=== PATIENT | male | born 1955 | race Caucasian/White ===

== ENCOUNTER 2016-08-21 03:15 | Inpatient (IN) | payer MEDICARE, MEDICAID ==
[~2016-08-21] VITALS: Ht 170.2 cm; Wt 115.4 kg
[~2016-08-21 03:15] MED LIST: ALLO100T; COLC0.6T; ESOM40CA39; FLU01T PO; MET25T PO; NIF10C PO; NOR5T PO; PHE100C PO
[2016-08-21 05:58] LABS: Basophils # (auto) 0.2 uL; Basophils % (auto) 2.7 % (0.0-2.0); Eosinophils # (auto) 0.3 uL; Eosinophils % (auto) 4.6 % (0.0-7.0); Hematocrit 29.7 % (41.0-53.0); Lymphocytes # (auto) 2.2 uL; Lymphocytes % (auto) 32.3 % (10.0-50.0); Mean Corpuscular Hemoglobin 31.5 pg (28.0-32.0); Mean Corpuscular Hgb Conc. 33.7 g/dL (32.0-36.0); Mean Corpuscular Volume 93.3 fL (80.0-100.0); Mean Platelet Volume 8.8 fL (7.4-10.4); Monocytes # (auto) 0.5 uL; Monocytes % (auto) 7.9 % (0.0-12.0); Neutrophils # (auto) 3.6 uL; Neutrophils % (auto) 52.5 % (37.0-80.0); Platelet Count (auto) 215 10^3/uL (140-450); Red Cell Distribution Width 17.8 % (11.6-16.0); White Blood Cell 6.8 10^3/uL (4.4-10.8)
[2016-08-21 06:11] LABS: INR 1.06 (0.9-1.15); Partial Thromboplastin Time 28.9 sec (22.64-33.71); Prothrombin Time 11.6 sec (9.37-12.3)
[2016-08-21 06:20] LABS: Anion Gap 17 (5-15); Aspartate Aminotransferase 16 U/L (15-37); BUN/Creatinine Ratio 9.2; Calcium 8.5 mg/dL (8.5-10.1); Carbon Dioxide 17 mmol/L (21-32); Chloride 108 mmol/L (98-107); GFR African American 6 mL/min; GFR Non-African American 5 mL/min; Glucose 90 mg/dL (74-106); Potassium 4.4 mmol/L (3.5-5.1); Sodium 142 mmol/L (136-145)
[2016-08-21 06:28] LABS: Alkaline Phosphatase 91 U/L (45-117); B-Type Natriuretic Peptide 24.23 pg/mL (0-100); Bilirubin, Total 0.2 mg/dL (0.2-1.0); Total Protein 7.5 g/dL (6.4-8.2)
[2016-08-21 06:34] LABS: Temperature: 22.7 C (20.0-25.0)
[2016-08-21 06:37] LABS: Blood Urea Nitrogen 110 mg/dL (7-18)
[2016-08-21] MEDS ORDERED: ONDANSETRON HCL 4 MG/2 ML VIAL IV ONE (06:45)
[2016-08-21] MEDS ORDERED: HYDROmorphone HCL 2 MG/ML VL IV ONE (06:45)
[2016-08-21] MEDS ORDERED: LORazepam 2MG/ML-1ML VIAL IV PRN (09:00)
[2016-08-21] MEDS ORDERED: LORazepam 0.5 MG TAB PO PRN (09:15)
[2016-08-21] MEDS ORDERED: MORPHINE SULF INJ 2 MG/ML SYRINGE 1ML IV PRN ×2 (09:15)
[2016-08-21] MEDS ORDERED: NITROGLYCERIN 0.4 MG SL TAB SL PRN ×2 (09:15)
[2016-08-21] MEDS ORDERED: ACETAMINOPHEN 325 MG TAB PO PRN (09:15)
[2016-08-21] MEDS ORDERED: ZOLPIDEM TARTRATE 5 MG TAB PO PRN (09:15)
[2016-08-21] MEDS ORDERED: ALUM & MAG HYDROX-SIMETH LIQ(MAALOX) 30 ML PO PRN (09:15)
[2016-08-21] MEDS: CLOPIDOGREL BISULFATE 75 MG TAB PO SCH (09:52)
[2016-08-21] MEDS: DOCUSATE SOD 100 MG CAP PO SCH (09:53)
[2016-08-21] MEDS: METOPROLOL TARTRATE 25 MG TAB PO SCH ×2 (09:53→22:28)
[2016-08-21] MEDS: PANTOPRAZOLE 40 MG TAB PO SCH (09:54)
[2016-08-21] MEDS: hydrALAZINE HCL 25 MG TAB PO SCH ×2 (09:54→22:26)
[2016-08-21] MEDS: ENALAPRIL MALEATE 2.5 MG TAB PO SCH ×2 (09:54→22:29)
[2016-08-21] MEDS: ASPirin 81 mg TAB PO SCH (09:58)
[2016-08-21] MEDS: BOOST PLUS 8 ounce PO SCH ×2 (12:00→18:00)
[2016-08-21 12:45] VITALS: BP 113/62
[2016-08-21] MEDS: SODIUM CHLOR 0.9% PF (SALINE LOCK) 10ML VIAL IV SCH ×2 (14:00→22:26)
[2016-08-21] MEDS: PHENYTOIN SODIUM 100 MG CAP PO SCH ×2 (14:32→22:27)
[2016-08-21 17:09] VITALS: BP 101/58
[2016-08-21 20:00] VITALS: BP 106/53
[2016-08-21] MEDS: SENNA 8.6 MG TAB PO SCH ×2 (22:00→22:28)
[2016-08-21] MEDS: ATORVASTATIN 20 MG TAB PO SCH (22:27)
[2016-08-21] MEDS: BACLOFEN 10 MG TAB PO SCH (22:27)
[2016-08-22] MEDS: ONDANSETRON HCL 4 MG/2 ML VIAL IV PRN ×2 (02:23→10:39)
[2016-08-22] MEDS: HYDROcodone-ACET 7.5/325MG TAB PO PRN ×2 (02:25→10:41)
[2016-08-22 05:14] VITALS: BP 100/58
[2016-08-22] MEDS: SODIUM CHLOR 0.9% PF (SALINE LOCK) 10ML VIAL IV SCH ×3 (05:36→21:43)
[2016-08-22] MEDS: PHENYTOIN SODIUM 100 MG CAP PO SCH ×3 (05:36→21:52)
[2016-08-22 06:31] LABS: Basophils # (auto) 0 uL; Basophils % (auto) 0.6 % (0.0-2.0); Eosinophils # (auto) 0.4 uL; Hematocrit 29.3 % (41.0-53.0); Hemoglobin 9.7 g/dL (13.5-17.5); Lymphocytes # (auto) 2.3 uL; Lymphocytes % (auto) 31.2 % (10.0-50.0); Mean Corpuscular Hemoglobin 31.5 pg (28.0-32.0); Mean Corpuscular Hgb Conc. 33.2 g/dL (32.0-36.0); Mean Corpuscular Volume 94.8 fL (80.0-100.0); Mean Platelet Volume 8.5 fL (7.4-10.4); Monocytes # (auto) 0.5 uL; Monocytes % (auto) 7.1 % (0.0-12.0); Neutrophils # (auto) 4.1 uL; Neutrophils % (auto) 56.1 % (37.0-80.0); Platelet Count (auto) 219 10^3/uL (140-450); Red Cell Distribution Width 17.6 % (11.6-16.0); White Blood Cell 7.4 10^3/uL (4.4-10.8)
[2016-08-22 07:00] LABS: Albumin 2.9 g/dL (3.4-5.0); Bilirubin, Total 0.2 mg/dL (0.2-1.0); Magnesium 2.8 mg/dL (1.6-2.6); Potassium 4.7 mmol/L (3.5-5.1); Total Protein 6.9 g/dL (6.4-8.2)
[2016-08-22] MEDS ORDERED: EPOETIN ALFA 3,000 UNIT/1 ML VIAL IV ONE (08:00)
[2016-08-22] MEDS ORDERED: EPOETIN ALFA 2,000 UNIT/1 ML VIAL IV ONE (08:00)
[2016-08-22] MEDS ORDERED: SODIUM CHL 0.9% 1000 ML BAG XX ONE (08:00)
[2016-08-22] MEDS: BOOST PLUS 8 ounce PO SCH ×3 (08:00→17:20)
[2016-08-22 09:43] VITALS: BP 108/47
[2016-08-22] MEDS: hydrALAZINE HCL 25 MG TAB PO SCH ×2 (10:00→21:43)
[2016-08-22] MEDS: ENALAPRIL MALEATE 2.5 MG TAB PO SCH ×2 (10:00→21:44)
[2016-08-22] MEDS: METOPROLOL TARTRATE 25 MG TAB PO SCH ×2 (10:00→21:43)
[2016-08-22] MEDS: DOCUSATE SOD 100 MG CAP PO SCH (10:00)
[2016-08-22] MEDS: ASPirin 81 mg TAB PO SCH (10:40)
[2016-08-22] MEDS: CLOPIDOGREL BISULFATE 75 MG TAB PO SCH (10:40)
[2016-08-22] MEDS: PANTOPRAZOLE 40 MG TAB PO SCH (10:40)
[2016-08-22 14:34] VITALS: BP 107/53
[2016-08-22] MEDS ORDERED: EPOETIN ALFA 3,000 UNIT/1 ML VIAL SC ONE (15:30)
[2016-08-22] MEDS ORDERED: EPOETIN ALFA 2,000 UNIT/1 ML VIAL SC ONE (15:30)
[2016-08-22 17:59] VITALS: BP 78/46
[2016-08-22 18:00] VITALS: BP 102/60
[2016-08-22] MEDS: BACLOFEN 10 MG TAB PO SCH (21:52)
[2016-08-22] MEDS: ATORVASTATIN 20 MG TAB PO SCH (21:53)
[2016-08-22] MEDS: SENNA 8.6 MG TAB PO SCH (21:53)
[2016-08-22 22:00] VITALS: BP 90/56
[2016-08-23 05:00] VITALS: BP 98/51
[2016-08-23] MEDS: SODIUM CHLOR 0.9% PF (SALINE LOCK) 10ML VIAL IV SCH (05:44)
[2016-08-23] MEDS: PHENYTOIN SODIUM 100 MG CAP PO SCH (05:44)
[2016-08-23 06:00] LABS: Basophils # (auto) 0 uL; Basophils % (auto) 0.4 % (0.0-2.0); Eosinophils # (auto) 0.4 uL; Eosinophils % (auto) 5.7 % (0.0-7.0); Hematocrit 29.1 % (41.0-53.0); Hemoglobin 9.8 g/dL (13.5-17.5); Lymphocytes # (auto) 1.6 uL; Lymphocytes % (auto) 22.2 % (10.0-50.0); Mean Corpuscular Hemoglobin 31.3 pg (28.0-32.0); Mean Corpuscular Hgb Conc. 33.5 g/dL (32.0-36.0); Mean Corpuscular Volume 93.2 fL (80.0-100.0); Mean Platelet Volume 8.8 fL (7.4-10.4); Monocytes # (auto) 0.5 uL; Monocytes % (auto) 6.5 % (0.0-12.0); Neutrophils # (auto) 4.6 uL; Neutrophils % (auto) 65.2 % (37.0-80.0); Platelet Count (auto) 198 10^3/uL (140-450); Red Cell Distribution Width 17.5 % (11.6-16.0)
[2016-08-23 06:32] LABS: Anion Gap 14 (5-15); Blood Urea Nitrogen 71 mg/dL (7-18); Calcium 7.8 mg/dL (8.5-10.1); Carbon Dioxide 24 mmol/L (21-32); Chloride 101 mmol/L (98-107); Glucose 87 mg/dL (74-106); Potassium 4.3 mmol/L (3.5-5.1); Sodium 139 mmol/L (136-145)
[2016-08-23 06:35] LABS: Aspartate Aminotransferase 11 U/L (15-37); BUN/Creatinine Ratio 7.8; GFR African American 8 mL/min; GFR Non-African American 6 mL/min
[2016-08-23 06:36] LABS: Alkaline Phosphatase 88 U/L (45-117); Bilirubin, Total < 0.1 mg/dL (0.2-1.0); Total Protein 6.6 g/dL (6.4-8.2)
[2016-08-23 08:00] LABS: Urine RBC None Seen /hpf (0 - 3)
[2016-08-23 08:15] LABS: Urine Bilirubin Negative (Negative); Urine Blood Negative /uL (Negative); Urine Color Yellow (Yellow); Urine Glucose TRACE mg/dL (Normal); Urine Ketone Negative (Negative); Urine Mucus FEW (None Seen); Urine Nitrite Negative (Negative); Urine Squamous Epithelial Cell FEW /hpf (<5); Urine Urobilinogen Normal (Negative); Urine pH 5.5 (5.0-8.0)
[2016-08-23 08:30] VITALS: BP 100/60
[2016-08-23 08:49] VITALS: BP 100/50
[2016-08-23] MEDS: CLOPIDOGREL BISULFATE 75 MG TAB PO SCH (12:03)
[2016-08-23] MEDS: hydrALAZINE HCL 25 MG TAB PO SCH (12:03)
[2016-08-23] MEDS: PANTOPRAZOLE 40 MG TAB PO SCH (12:04)
[2016-08-23] MEDS: DOCUSATE SOD 100 MG CAP PO SCH (12:04)
[2016-08-23] MEDS: ASPirin 81 mg TAB PO SCH (12:04)
[2016-08-23] MEDS: METOPROLOL TARTRATE 25 MG TAB PO SCH (12:04)
[2016-08-23] MEDS: ENALAPRIL MALEATE 2.5 MG TAB PO SCH (12:05)
[2016-08-23] MEDS: BOOST PLUS 8 ounce PO SCH (12:16)
[2016-08-23 13:24] VITALS: BP 93/57
[2016-08-23 14:19] VITALS: BP 100/60
[2016-08-23 16:59] VITALS: BP 94/56
== END 2016-08-23 17:30 | disposition home or self-care (01) | DRG 302 ==
LOC: ER 03:15 → EDBD 03:15 → TELE 03:16 → TELE-WESTW 11:00
PROVIDERS: ADMIT Internal Medicine; ATTEND Family Medicine
PROC: 5A1D00Z (ICD-10-PCS; principal; 2016-08-22)
DX: I25.119 Atherosclerotic heart disease of native coronary artery with unspecified angina pectoris (principal); N18.6 End stage renal disease; I12.0 Hypertensive chronic kidney disease with stage 5 chronic kidney disease or end stage renal disease; E44.0 Moderate protein-calorie malnutrition; D63.1 Anemia in chronic kidney disease; E66.01 Morbid (severe) obesity due to excess calories; F32.9 Major depressive disorder, single episode, unspecified; G40.909 Epilepsy, unspecified, not intractable, without status epilepticus; K21.9 Gastro-esophageal reflux disease without esophagitis; G47.00 Insomnia, unspecified; F41.9 Anxiety disorder, unspecified; M10.9 Gout, unspecified; Z82.3 Family history of stroke; Z82.49 Family history of ischemic heart disease and other diseases of the circulatory system; I25.2 Old myocardial infarction; Z86.73 Personal history of transient ischemic attack (TIA), and cerebral infarction without residual deficits; Z99.2 Dependence on renal dialysis; Z88.8 Allergy status to other drugs, medicaments and biological substances; Z79.899 Other long term (current) drug therapy; Z90.49 Acquired absence of other specified parts of digestive tract; Z80.8 Family history of malignant neoplasm of other organs or systems; Z68.39 Body mass index [BMI] 39.0-39.9, adult
CPT/HCPCS: 36415; 71010; 80053; 80061; 80185; 81001; 83735; 83880; 84443; 84484; 85025; 85610; 85730; 87081; 90935; 93005; 93306; 94761; 96374; 96375; J2405; Q4081

== ENCOUNTER 2016-10-02 03:13 | Inpatient (IN) | payer MEDICARE, MEDICAID ==
[~2016-10-02] VITALS: Ht 170.2 cm; Wt 101.2 kg
[~2016-10-02 03:13] MED LIST changes: +HYDR-4663 PO; -NOR5T PO
[2016-10-02 04:28] LABS: Basophils # (auto) 0.1 uL; Basophils % (auto) 1.1 % (0.0-2.0); CONDITION Y; Eosinophils # (auto) 0.3 uL; Hematocrit 37.3 % (41.0-53.0); Hemoglobin 12.6 g/dL (13.5-17.5); Lymphocytes # (auto) 2.4 uL; Lymphocytes % (auto) 22.6 % (10.0-50.0); Mean Corpuscular Hemoglobin 32.4 pg (28.0-32.0); Mean Corpuscular Hgb Conc. 33.8 g/dL (32.0-36.0); Mean Platelet Volume 8.8 fL (7.4-10.4); Monocytes # (auto) 1.1 uL; Monocytes % (auto) 9.9 % (0.0-12.0); Neutrophils # (auto) 6.8 uL; Neutrophils % (auto) 63.4 % (37.0-80.0); Platelet Count (auto) 332 10^3/uL (140-450); Red Cell Distribution Width 15.9 % (11.6-16.0); White Blood Cell 10.8 10^3/uL (4.4-10.8)
[2016-10-02 04:42] LABS: Albumin 4.2 g/dL (3.4-5.0); Amylase 69 U/L (25-115); Anion Gap 26 (5-15); Aspartate Aminotransferase 8 U/L (15-37); Blood Urea Nitrogen 73 mg/dL (7-18); Calcium 9.7 mg/dL (8.5-10.1); Carbon Dioxide 17 mmol/L (21-32); Chloride 93 mmol/L (98-107); Glucose 101 mg/dL (74-106); Magnesium 3.1 mg/dL (1.6-2.6); Potassium 5.4 mmol/L (3.5-5.1); Sodium 136 mmol/L (136-145)
[2016-10-02 04:49] LABS: Alkaline Phosphatase 138 U/L (45-117); BUN/Creatinine Ratio 3.3; Bilirubin, Total 0.4 mg/dL (0.2-1.0); GFR African American 3 mL/min; GFR Non-African American 2 mL/min; Total Protein 9.7 g/dL (6.4-8.2)
[2016-10-02 05:07] LABS: B-Type Natriuretic Peptide 16.65 pg/mL (0-100)
[2016-10-02 06:57] LABS: Temperature: 23.1 C (20.0-25.0)
[2016-10-02] MEDS ORDERED: SODIUM CHLORIDE 0.9% 500 ML IV ONE (07:30)
[2016-10-02] MEDS ORDERED: LORazepam 2MG/ML-1ML VIAL IV PRN (11:30)
[2016-10-02] MEDS ORDERED: cloNIDine HCL 0.1 MG TAB PO PRN (11:30)
[2016-10-02] MEDS ORDERED: NITROGLYCERIN 0.4 MG SL TAB SL PRN (11:45)
[2016-10-02] MEDS ORDERED: ONDANSETRON HCL 4 MG/2 ML VIAL IV PRN (11:45)
[2016-10-02] MEDS ORDERED: HYDROmorphone HCL 2 MG/ML VL IV PRN (11:45)
[2016-10-02] MEDS ORDERED: TEMAZEPAM 15 MG CAP PO PRN (11:45)
[2016-10-02] MEDS ORDERED: ACETAMINOPHEN 325 MG TAB PO PRN (11:45)
[2016-10-02] MEDS ORDERED: DOCUSATE SOD 100 MG CAP PO PRN (11:45)
[2016-10-02] MEDS: MULTIPLE VITAMIN TAB PO SCH (12:00)
[2016-10-02] MEDS: PHENYTOIN SODIUM 100 MG CAP PO SCH ×2 (12:00→22:27)
[2016-10-02] MEDS: NIFEdipine ER 30 MG TAB PO SCH (12:00)
[2016-10-02] MEDS: FAMOTIDINE 20 MG TAB PO SCH (12:00)
[2016-10-02] MEDS: SODIUM CHLOR 0.9% PF (SALINE LOCK) 10ML VIAL IV SCH ×2 (13:06→21:29)
[2016-10-02] MEDS ORDERED: HALOPERIDOL LACTATE 5 MG/ML INJ VIAL IM PRN (21:15)
[2016-10-02 21:33] LABS: Temperature: 23.9 C (20.0-25.0)
[2016-10-02] MEDS ORDERED: FAMOTIDINE 20 MG TAB PO SCH (22:00)
[2016-10-02] MEDS: ATORVASTATIN 20 MG TAB PO SCH (22:00)
[2016-10-02] MEDS: HYDROcodone-ACET 5/325MG TAB PO PRN (22:27)
[2016-10-02 23:41] VITALS: BP 108/56
[2016-10-03] MEDS: SODIUM CHLOR 0.9% PF (SALINE LOCK) 10ML VIAL IV SCH ×3 (05:29→22:00)
[2016-10-03 05:37] VITALS: BP 120/61
[2016-10-03] MEDS: MULTIPLE VITAMIN TAB PO SCH (10:00)
[2016-10-03] MEDS: FAMOTIDINE 20 MG TAB PO SCH (10:00)
[2016-10-03] MEDS: NIFEdipine ER 30 MG TAB PO SCH (10:00)
[2016-10-03] MEDS: PHENYTOIN SODIUM 100 MG CAP PO SCH ×2 (10:03→22:18)
[2016-10-03] MEDS: HYDROcodone-ACET 5/325MG TAB PO PRN (10:04)
[2016-10-03] MEDS ORDERED: CLOPIDOGREL BISULFATE 75 MG TAB PO ONE (12:00)
[2016-10-03] MEDS: ATORVASTATIN 20 MG TAB PO SCH (22:18)
[2016-10-04] VITALS (24 sets, daily range): BP systolic 99–148; BP diastolic 42–90
[2016-10-04] MEDS: SODIUM CHLOR 0.9% PF (SALINE LOCK) 10ML VIAL IV SCH ×3 (05:20→22:00)
[2016-10-04] MEDS ORDERED: HEPARIN 1,000 UNITS/ml 1ML VIAL IV ONE (09:15)
[2016-10-04] MEDS: PHENYTOIN SODIUM 100 MG CAP PO SCH ×3 (09:27→22:18)
[2016-10-04] MEDS: MULTIPLE VITAMIN TAB PO SCH (09:28)
[2016-10-04] MEDS: CLOPIDOGREL BISULFATE 75 MG TAB PO SCH (09:28)
[2016-10-04] MEDS: FAMOTIDINE 20 MG TAB PO SCH (09:28)
[2016-10-04] MEDS: NIFEdipine ER 30 MG TAB PO SCH (09:28)
[2016-10-04] MEDS: HYDROcodone-ACET 5/325MG TAB PO PRN (10:27)
[2016-10-04 11:02] LABS: Basophils # (auto) 0.1 uL; Basophils % (auto) 1.1 % (0.0-2.0); CONDITION Y; Eosinophils # (auto) 0.2 uL; Hematocrit 35.2 % (41.0-53.0); Hemoglobin 11.8 g/dL (13.5-17.5); Lymphocytes # (auto) 1.5 uL; Lymphocytes % (auto) 16.1 % (10.0-50.0); Mean Corpuscular Hemoglobin 32.7 pg (28.0-32.0); Mean Corpuscular Hgb Conc. 33.6 g/dL (32.0-36.0); Mean Corpuscular Volume 97.4 fL (80.0-100.0); Mean Platelet Volume 8.7 fL (7.4-10.4); Monocytes # (auto) 0.8 uL; Monocytes % (auto) 8.1 % (0.0-12.0); Neutrophils # (auto) 6.9 uL; Neutrophils % (auto) 72.7 % (37.0-80.0); Platelet Count (auto) 247 10^3/uL (140-450); Red Cell Distribution Width 15.9 % (11.6-16.0); White Blood Cell 9.4 10^3/uL (4.4-10.8)
[2016-10-04] MEDS ORDERED: SODIUM BICARBONATE 8.4 % INJ 50ML VIAL IV ONE (11:15)
[2016-10-04] MEDS ORDERED: DEXTROSE (50%) 50ML SYRG IV ONE (11:15)
[2016-10-04] MEDS ORDERED: CALCIUM GLUC 4.65 MEQ/10ML 4.65 MEQ in SODIUM CHL 0.9% 50 ML IV ONE (11:15)
[2016-10-04] MEDS ORDERED: ALBUTEROL SULF 2.5 MG/0.5ML(0.5%) NEB SOLN NEB ONE (11:15)
[2016-10-04] MEDS ORDERED: InsuLIN REG 1unit/0.01ml Soln (100units/ml) SC ONE (11:15)
[2016-10-04] MEDS ORDERED: SODIUM BICARBONATE 8.4% INJ 50ML SYRINGE ONE (11:20)
[2016-10-04 11:46] LABS: Albumin 3.9 g/dL (3.4-5.0); BUN/Creatinine Ratio 4.1; Bilirubin, Total 0.4 mg/dL (0.2-1.0); Calcium 9.6 mg/dL (8.5-10.1); Total Protein 8.6 g/dL (6.4-8.2)
[2016-10-04 12:40] LABS: Potassium 7.8 mmol/L (3.5-5.1)
[2016-10-04] MEDS: ALBUMIN 25% 100 ML IV SCH ×2 (14:00→15:00)
[2016-10-04] MEDS ORDERED: ONDANSETRON HCL 4 MG/2 ML VIAL IM ONE (21:45)
[2016-10-04 21:58] LABS: BUN/Creatinine Ratio 3.1; Calcium 10.3 mg/dL (8.5-10.1); Magnesium 3.2 mg/dL (1.6-2.6)
[2016-10-04] MEDS: ATORVASTATIN 20 MG TAB PO SCH (22:10)
[2016-10-05] VITALS (32 sets, daily range): BP systolic 98–137; BP diastolic 44–103
[2016-10-05] MEDS: SODIUM CHLOR 0.9% PF (SALINE LOCK) 10ML VIAL IV SCH ×3 (06:00→22:00)
[2016-10-05 08:28] LABS: Basophils # (auto) 0.1 uL; Basophils % (auto) 1.1 % (0.0-2.0); CONDITION Y; Eosinophils # (auto) 0.5 uL; Eosinophils % (auto) 5.8 % (0.0-7.0); Hematocrit 37.6 % (41.0-53.0); Hemoglobin 12.4 g/dL (13.5-17.5); Lymphocytes # (auto) 1.9 uL; Lymphocytes % (auto) 23.5 % (10.0-50.0); Mean Corpuscular Hgb Conc. 33.1 g/dL (32.0-36.0); Mean Corpuscular Volume 96.7 fL (80.0-100.0); Monocytes # (auto) 0.6 uL; Monocytes % (auto) 7.6 % (0.0-12.0); Platelet Count (auto) 258 10^3/uL (140-450); Red Cell Distribution Width 16.6 % (11.6-16.0)
[2016-10-05 08:50] LABS: Albumin 4.1 g/dL (3.4-5.0); Calcium 10.3 mg/dL (8.5-10.1); Potassium 4.8 mmol/L (3.5-5.1)
[2016-10-05 09:00] LABS: BUN/Creatinine Ratio 3.5; Bilirubin, Total 0.4 mg/dL (0.2-1.0); Total Protein 9.4 g/dL (6.4-8.2)
[2016-10-05] MEDS: NIFEdipine ER 30 MG TAB PO SCH (10:00)
[2016-10-05] MEDS: MULTIPLE VITAMIN TAB PO SCH ×2 (10:00→10:41)
[2016-10-05] MEDS: FAMOTIDINE 20 MG TAB PO SCH ×2 (10:00→10:41)
[2016-10-05] MEDS: CLOPIDOGREL BISULFATE 75 MG TAB PO SCH ×2 (10:00→10:36)
[2016-10-05] MEDS: PHENYTOIN SODIUM 100 MG CAP PO SCH (10:37)
[2016-10-05] MEDS ORDERED: SODIUM CHL 0.9% 1000 ML BAG XX ONE (13:00)
[2016-10-05] MEDS ORDERED: PHENYTOIN SODIUM 100 MG CAP PO ONE (22:00)
[2016-10-05] MEDS: ATORVASTATIN 20 MG TAB PO SCH (22:03)
[2016-10-06 05:00] VITALS: BP 108/63
[2016-10-06 05:40] LABS: Basophils # (auto) 0.1 uL; Basophils % (auto) 0.6 % (0.0-2.0); CONDITION Y; DEFINITIVE SEE PRINTOUT; Eosinophils # (auto) 0.9 uL; Eosinophils % (auto) 10.9 % (0.0-7.0); Hematocrit 38.8 % (41.0-53.0); Hemoglobin 12.9 g/dL (13.5-17.5); Lymphocytes # (auto) 2.8 uL; Mean Corpuscular Hemoglobin 32.1 pg (28.0-32.0); Mean Corpuscular Hgb Conc. 33.3 g/dL (32.0-36.0); Mean Corpuscular Volume 96.2 fL (80.0-100.0); Mean Platelet Volume 9.3 fL (7.4-10.4); Monocytes # (auto) 0.5 uL; Monocytes % (auto) 6.5 % (0.0-12.0); Platelet Count (auto) 238 10^3/uL (140-450); Red Cell Distribution Width 15.8 % (11.6-16.0); White Blood Cell 8.3 10^3/uL (4.4-10.8)
[2016-10-06 05:50] LABS: INR 1.21 (0.9-1.15)
[2016-10-06 05:52] LABS: Prothrombin Time 13.2 sec (9.37-12.3)
[2016-10-06 05:55] LABS: Calcium 10.5 mg/dL (8.5-10.1); Magnesium 3.2 mg/dL (1.6-2.6); Potassium 4.6 mmol/L (3.5-5.1)
[2016-10-06 06:05] LABS: BUN/Creatinine Ratio 3.8; Bilirubin, Total 0.4 mg/dL (0.2-1.0); Total Protein 9.2 g/dL (6.4-8.2)
[2016-10-06 08:00] VITALS: BP 99/64
[2016-10-06 09:00] VITALS: BP 125/65
[2016-10-06] MEDS: NIFEdipine ER 30 MG TAB PO SCH (10:00)
[2016-10-06] MEDS: MULTIPLE VITAMIN TAB PO SCH (10:00)
[2016-10-06] MEDS: FAMOTIDINE 20 MG TAB PO SCH (10:00)
[2016-10-06] MEDS: CLOPIDOGREL BISULFATE 75 MG TAB PO SCH (10:40)
[2016-10-06] MEDS: PHENYTOIN SODIUM 100 MG CAP PO SCH ×2 (10:41→22:52)
[2016-10-06] MEDS: SODIUM CHLOR 0.9% PF (SALINE LOCK) 10ML VIAL IV SCH ×3 (10:46→22:00)
[2016-10-06 13:00] VITALS: BP 109/64
[2016-10-06 17:10] VITALS: BP 112/77
[2016-10-06 22:00] VITALS: BP 95/62
[2016-10-06] MEDS: ATORVASTATIN 20 MG TAB PO SCH (22:00)
[2016-10-07 05:00] VITALS: BP 95/56
[2016-10-07 08:00] VITALS: BP 127/70
[2016-10-07 09:00] VITALS: BP 127/70
[2016-10-07] MEDS: FAMOTIDINE 20 MG TAB PO SCH (10:00)
[2016-10-07] MEDS: CLOPIDOGREL BISULFATE 75 MG TAB PO SCH (10:00)
[2016-10-07] MEDS: MULTIPLE VITAMIN TAB PO SCH (10:00)
[2016-10-07] MEDS: NIFEdipine ER 30 MG TAB PO SCH (10:00)
[2016-10-07] MEDS: PHENYTOIN SODIUM 100 MG CAP PO SCH (10:00)
[2016-10-07 13:00] VITALS: BP 125/80
== END 2016-10-07 11:00 | disposition hospice, inpatient (51) | DRG 682 ==
LOC: ER 03:13 → EDBD 03:13 → TELE 03:14 → TELE-E-ADS 15:30 → TELE-CENTR 18:49 → ICU WEST 10-04 11:05 → TELE-WESTW 10-05 17:01
PROVIDERS: ADMIT Internal Medicine; ATTEND Internal Medicine
PROC: 5A1D60Z (ICD-10-PCS; principal; 2016-10-04)
DX: I12.0 Hypertensive chronic kidney disease with stage 5 chronic kidney disease or end stage renal disease (principal); G93.41 Metabolic encephalopathy; N18.6 End stage renal disease; J98.11 Atelectasis; E87.2 Acidosis; E87.5 Hyperkalemia; G40.909 Epilepsy, unspecified, not intractable, without status epilepticus; M10.9 Gout, unspecified; E11.22 Type 2 diabetes mellitus with diabetic chronic kidney disease; E86.0 Dehydration; G30.9 Alzheimer's disease, unspecified; F02.80 Dementia in other diseases classified elsewhere, unspecified severity, without behavioral disturbance, psychotic disturbance, mood disturbance, and anxiety; F29 Unspecified psychosis not due to a substance or known physiological condition; H54.0 Blindness, both eyes; I25.10 Atherosclerotic heart disease of native coronary artery without angina pectoris; K21.9 Gastro-esophageal reflux disease without esophagitis; E87.8 Other disorders of electrolyte and fluid balance, not elsewhere classified; R53.1 Weakness; Z51.5 Encounter for palliative care; W18.39XA Other fall on same level, initial encounter; Y93.89 Activity, other specified; Y92.89 Other specified places as the place of occurrence of the external cause; Y99.8 Other external cause status; Z91.15 Patient's noncompliance with renal dialysis; I25.2 Old myocardial infarction; Z79.02 Long term (current) use of antithrombotics/antiplatelets; Z79.899 Other long term (current) drug therapy; Z82.3 Family history of stroke; Z82.49 Family history of ischemic heart disease and other diseases of the circulatory system; Z83.3 Family history of diabetes mellitus; Z86.73 Personal history of transient ischemic attack (TIA), and cerebral infarction without residual deficits; Z87.891 Personal history of nicotine dependence; Z91.19 Patient's noncompliance with other medical treatment and regimen; Z99.81 Dependence on supplemental oxygen; Z88.8 Allergy status to other drugs, medicaments and biological substances; Z90.49 Acquired absence of other specified parts of digestive tract; Z80.9 Family history of malignant neoplasm, unspecified
CPT/HCPCS: 36415; 70450; 71010; 80048; 80053; 82150; 82607; 82746; 82962; 83605; 83690; 83735; 83880; 84100; 84439; 84443; 84484; 85025; 85610; 87081; 90935; 93005; 96360; 96361; 97110; 97116; 97163; 97530; J1642; J2405

== ENCOUNTER 2017-01-19 23:36 | Emergency (ER) | payer MEDICARE, MEDICAID ==
[~2017-01-19] VITALS: Ht 170.2 cm; Wt 110.2 kg
[~2017-01-19 23:36] MED LIST changes: -HYDR-4663 PO; +HYDR-4683 PO
[2017-01-19 23:49] VITALS: BP 121/69
== END 2017-01-20 04:41 | disposition left against medical advice (07) ==
LOC: EDBD 23:36 → EDUNIT# 23:36 → ER 23:36
DX: R07.89 Other chest pain (principal); I12.0 Hypertensive chronic kidney disease with stage 5 chronic kidney disease or end stage renal disease; N18.6 End stage renal disease; M10.9 Gout, unspecified; K21.9 Gastro-esophageal reflux disease without esophagitis; Z86.73 Personal history of transient ischemic attack (TIA), and cerebral infarction without residual deficits; I25.2 Old myocardial infarction; Z90.49 Acquired absence of other specified parts of digestive tract; Z79.899 Other long term (current) drug therapy; Z88.8 Allergy status to other drugs, medicaments and biological substances; Z53.29 Procedure and treatment not carried out because of patient's decision for other reasons
CPT/HCPCS: 71010; 93005

== ENCOUNTER 2017-04-03 22:36 | Inpatient (IN) | payer MEDICARE, MEDICAID ==
[~2017-04-03] VITALS: Ht 170.2 cm; Wt 109.8 kg
[~2017-04-03 22:36] MED LIST changes: +ASPI81CH43 PO; +CLOP75TA28 PO
[2017-04-03 23:29] LABS: Basophils # (auto) 0 uL; Eosinophils # (auto) 0.1 uL; Hemoglobin 8.1 g/dL (13.5-17.5); Lymphocytes # (auto) 1.3 uL; Mean Corpuscular Hgb Conc. 33.1 g/dL (32.0-36.0); Monocytes # (auto) 0.9 uL; Neutrophils # (auto) 4.8 uL; Nucleated Red Blood Cells % 0.1 %
[2017-04-03 23:32] LABS: Basophils % (auto) 0.5 % (0.0-2.0); Eosinophils % (auto) 1.3 % (0.0-7.0); Hematocrit 24.4 % (41.0-53.0); Lymphocytes % (auto) 18.1 % (10.0-50.0); Mean Corpuscular Volume 87.7 fL (80.0-100.0); Monocytes % (auto) 12.4 % (0.0-12.0); Neutrophils % (auto) 67.7 % (37.0-80.0); Platelet Count (auto) 158 10^3/uL (140-450); Red Blood Cells 2.78 10^6/uL (4.5-5.90); Red Cell Distribution Width 17.8 % (11.8-14.3)
[2017-04-03 23:56] LABS: INR 1.28 (0.9-1.15); Partial Thromboplastin Time 34.5 sec (22.64-33.71)
[2017-04-04 00:09] LABS: Chloride 107 mmol/L (98-107); Potassium 3.5 mmol/L (3.5-5.1); Sodium 137 mmol/L (136-145)
[2017-04-04 00:10] LABS: Alanine Aminotransferase 8 U/L (16-61); Alkaline Phosphatase 92 U/L (45-117); Anion Gap 11 (5-15); Aspartate Aminotransferase 6 U/L (15-37); BUN/Creatinine Ratio 7.9; Bilirubin, Total 0.2 mg/dL (0.2-1.0); Blood Urea Nitrogen 50 mg/dL (7-18); Calcium 7.4 mg/dL (8.5-10.1); Carbon Dioxide 19 mmol/L (21-32); GFR African American 12 mL/min; GFR Non-African American 10 mL/min; Glucose 89 mg/dL (74-106); Total Protein 7.2 g/dL (6.4-8.2)
[2017-04-04 00:11] LABS: Albumin 2.4 g/dL (3.4-5.0)
[2017-04-04] MEDS ORDERED: SODIUM CHLORIDE 0.9% 500 ML IV ONE ×2 (01:30→02:00)
[2017-04-04] MEDS ORDERED: MORPHINE SULF INJ 2 MG/ML SYRINGE 1ML ONE (02:06)
[2017-04-04] MEDS ORDERED: ONDANSETRON HCL 4 MG/2 ML VIAL ONE (02:06)
[2017-04-04] MEDS ORDERED: MORPHINE SULF INJ 2 MG/ML SYRINGE 1ML IV ONE (02:15)
[2017-04-04] MEDS ORDERED: ONDANSETRON HCL 4 MG/2 ML VIAL IV ONE (02:15)
[2017-04-04] MEDS ORDERED: SODIUM CHLORIDE 0.9% 1,000 ML IV ONE (03:00)
[2017-04-04] MEDS ORDERED: HYDR50TA15 PO (04:01)
[2017-04-04] MEDS ORDERED: PHE100C PO (04:03)
[2017-04-04] MEDS ORDERED: BACL10TA PO (04:03)
[2017-04-04] MEDS ORDERED: WARF5TAB71 PO (04:04)
[2017-04-04] MEDS ORDERED: NITROGLYCERIN 0.4 MG SL TAB SL PRN (06:30)
[2017-04-04] MEDS ORDERED: ONDANSETRON HCL 4 MG/2 ML VIAL IV PRN (06:30)
[2017-04-04] MEDS ORDERED: TEMAZEPAM 15 MG CAP PO PRN (06:30)
[2017-04-04] MEDS ORDERED: MORPHINE SULF INJ 2 MG/ML SYRINGE 1ML IV PRN (06:30)
[2017-04-04] MEDS ORDERED: DEXTROSE (50%) 50ML SYRG IV PRN (06:30)
[2017-04-04] MEDS ORDERED: ACETAMINOPHEN 325 MG TAB PO PRN (06:30)
[2017-04-04] MEDS ORDERED: HYDROcodone-ACET 5/325MG TAB ONE (06:52)
[2017-04-04] MEDS: HYDROcodone-ACET 5/325MG TAB PO PRN ×2 (06:58→22:36)
[2017-04-04] MEDS: NIFEdipine ER 30 MG TAB PO SCH (10:00)
[2017-04-04] MEDS: METOPROLOL TARTRATE 50 MG TAB PO SCH ×2 (10:00→22:37)
[2017-04-04] MEDS: hydrALAZINE HCL 25 MG TAB PO SCH ×2 (10:00→22:00)
[2017-04-04 10:20] LABS: BUN/Creatinine Ratio 8.2; Potassium 3.8 mmol/L (3.5-5.1)
[2017-04-04 10:21] LABS: Albumin 2.3 g/dL (3.4-5.0); Bilirubin, Total 0.2 mg/dL (0.2-1.0); Calcium 7.6 mg/dL (8.5-10.1); Total Protein 6.7 g/dL (6.4-8.2)
[2017-04-04 10:24] LABS: INR 1.25 (0.9-1.15); Partial Thromboplastin Time 34.5 sec (22.64-33.71); Prothrombin Time 13.7 sec (9.37-12.3)
[2017-04-04] MEDS: ASPirin 81 mg TAB PO SCH (10:50)
[2017-04-04] MEDS: CLOPIDOGREL BISULFATE 75 MG TAB PO SCH (10:51)
[2017-04-04] MEDS: PANTOPRAZOLE 40 MG TAB PO SCH (10:51)
[2017-04-04] MEDS: InsuLIN REG 1unit/0.01ml Soln (100units/ml) SC SCH ×2 (12:00→18:00)
[2017-04-04] MEDS: ACCU-CHEK COMFORT CURVE STRIP VI SCH ×2 (12:16→18:00)
[2017-04-04] MEDS ORDERED: SODIUM CHL 0.9% 1000 ML BAG XX ONE (13:30)
[2017-04-04] MEDS ORDERED: EPOETIN ALFA 10,000 UNIT/1 ML VIAL IV ONE (13:30)
[2017-04-04] MEDS: PHENYTOIN SODIUM 100 MG CAP PO SCH ×2 (14:53→22:35)
[2017-04-04 15:50] VITALS: BP 124/32
[2017-04-04 17:00] VITALS: BP 114/61
[2017-04-04] MEDS ORDERED: WARFARIN SODIUM 5 MG TAB PO ONE (17:00)
[2017-04-04] MEDS ORDERED: LORazepam 2MG/ML-1ML VIAL IV PRN (21:00)
[2017-04-04 21:44] VITALS: BP 103/55
[2017-04-05 05:18] VITALS: BP 95/54
[2017-04-05] MEDS: PHENYTOIN SODIUM 100 MG CAP PO SCH ×2 (05:45→13:38)
[2017-04-05] MEDS: ACCU-CHEK COMFORT CURVE STRIP VI SCH ×3 (05:50→11:22)
[2017-04-05] MEDS: InsuLIN REG 1unit/0.01ml Soln (100units/ml) SC SCH ×3 (05:50→11:22)
[2017-04-05] MEDS: HYDROcodone-ACET 5/325MG TAB PO PRN (05:51)
[2017-04-05 05:55] LABS: Eosinophils # (auto) 0.1 uL; Lymphocytes # (auto) 2.1 uL; Neutrophils # (auto) 6.6 uL
[2017-04-05 06:04] LABS: Basophils # (auto) 0 uL; Basophils % (auto) 0.5 % (0.0-2.0); Eosinophils % (auto) 0.7 % (0.0-7.0); Hematocrit 24.3 % (41.0-53.0); Hemoglobin 7.9 g/dL (13.5-17.5); INR 1.28 (0.9-1.15); Mean Corpuscular Hemoglobin 29.3 pg (28.0-32.0); Mean Corpuscular Hgb Conc. 32.8 g/dL (32.0-36.0); Mean Corpuscular Volume 89.4 fL (80.0-100.0); Monocytes # (auto) 1.1 uL; Neutrophils % (auto) 66.8 % (37.0-80.0); Nucleated Red Blood Cells % 0.2 %; Partial Thromboplastin Time 33.2 sec (22.64-33.71); Platelet Count (auto) 170 10^3/uL (140-450); Red Blood Cells 2.71 10^6/uL (4.5-5.90); Red Cell Distribution Width 17.8 % (11.8-14.3)
[2017-04-05 06:09] LABS: Albumin 2.3 g/dL (3.4-5.0); Calcium 8.3 mg/dL (8.5-10.1); Potassium 4.3 mmol/L (3.5-5.1)
[2017-04-05 06:13] LABS: Bilirubin, Total 0.3 mg/dL (0.2-1.0); Total Protein 7.3 g/dL (6.4-8.2)
[2017-04-05 08:00] VITALS: BP 106/39
[2017-04-05] MEDS: hydrALAZINE HCL 25 MG TAB PO SCH (10:00)
[2017-04-05] MEDS: NIFEdipine ER 30 MG TAB PO SCH (10:00)
[2017-04-05] MEDS: CLOPIDOGREL BISULFATE 75 MG TAB PO SCH (11:20)
[2017-04-05] MEDS: ASPirin 81 mg TAB PO SCH (11:21)
[2017-04-05] MEDS: PANTOPRAZOLE 40 MG TAB PO SCH (11:21)
[2017-04-05 11:30] VITALS: BP 106/39
[2017-04-05] MEDS: METOPROLOL TARTRATE 50 MG TAB PO SCH (11:31)
[2017-04-05 15:49] VITALS: BP 106/39
[2017-04-05] MEDS ORDERED: WARFARIN SODIUM 2.5 MG TAB PO ONE (17:00)
[2017-07-03] MEDS ORDERED: HYDR50TA15 PO (13:53)
[2017-07-03] MEDS ORDERED: BACL10TA PO (13:53)
[2017-07-03] MEDS ORDERED: TRAZ100T2 PO (13:53)
[2017-07-03] MEDS ORDERED: WARF5TAB71 PO (13:53)
[2017-07-03] MEDS ORDERED: HYDRX10T PO (13:53)
== END 2017-04-05 16:35 | disposition home or self-care (01) | DRG 280 ==
LOC: EDBD 22:36 → ER 22:38 → TELE 22:39 → TELE-WESTW 04-04 16:28
PROVIDERS: ADMIT Nurse Practitioner; ATTEND Internal Medicine
PROC: 5A1D70Z Performance of Urinary Filtration, Intermittent, Less than 6 Hours Per Day (ICD-10-PCS; principal; 2017-04-04)
DX: I21.29 ST elevation (STEMI) myocardial infarction involving other sites (principal); E43 Unspecified severe protein-calorie malnutrition; I13.2 Hypertensive heart and chronic kidney disease with heart failure and with stage 5 chronic kidney disease, or end stage renal disease; I95.9 Hypotension, unspecified; G93.40 Encephalopathy, unspecified; E11.22 Type 2 diabetes mellitus with diabetic chronic kidney disease; I50.9 Heart failure, unspecified; N18.6 End stage renal disease; I25.10 Atherosclerotic heart disease of native coronary artery without angina pectoris; D63.8 Anemia in other chronic diseases classified elsewhere; E78.5 Hyperlipidemia, unspecified; F03.90 Unspecified dementia, unspecified severity, without behavioral disturbance, psychotic disturbance, mood disturbance, and anxiety; G40.909 Epilepsy, unspecified, not intractable, without status epilepticus; F32.9 Major depressive disorder, single episode, unspecified; K21.9 Gastro-esophageal reflux disease without esophagitis; M10.9 Gout, unspecified; R79.1 Abnormal coagulation profile; Z82.3 Family history of stroke; Z82.49 Family history of ischemic heart disease and other diseases of the circulatory system; Z86.73 Personal history of transient ischemic attack (TIA), and cerebral infarction without residual deficits; Z91.15 Patient's noncompliance with renal dialysis; Z91.19 Patient's noncompliance with other medical treatment and regimen; Z99.2 Dependence on renal dialysis; Z95.5 Presence of coronary angioplasty implant and graft; I25.2 Old myocardial infarction; Z88.8 Allergy status to other drugs, medicaments and biological substances; Z79.82 Long term (current) use of aspirin; Z79.899 Other long term (current) drug therapy; Z90.49 Acquired absence of other specified parts of digestive tract; Z80.8 Family history of malignant neoplasm of other organs or systems; Z68.37 Body mass index [BMI] 37.0-37.9, adult
CPT/HCPCS: 36415; 71045; 80053; 83735; 83880; 84443; 84484; 85025; 85379; 85610; 85730; 87400; 90935; 93005; 96361; 96374; 96375; J0885; J1642; J2405

== ENCOUNTER 2017-04-06 18:25 | Inpatient (IN) | payer MEDICARE, MEDICAID ==
[~2017-04-06] VITALS: Ht 165.1 cm; Wt 92.7 kg
[~2017-04-06 18:25] MED LIST changes: +BACL10TA PO; +HYDR50TA15 PO; +WARF5TAB71 PO
[2017-04-07] MEDS ORDERED: LORazepam 2MG/ML-1ML VIAL IV ONE (01:45)
[2017-04-07] MEDS ORDERED: HEPARIN SODIUM (PORCINE) 5000 UNITS/ML 1ML VIAL IV ONE (01:45)
[2017-04-07 02:31] LABS: Basophils # (auto) 0.1 uL; Basophils % (auto) 0.6 % (0.0-2.0); Eosinophils # (auto) 0.3 uL; Hemoglobin 7.5 g/dL (13.5-17.5); Lymphocytes # (auto) 1.8 uL; Mean Corpuscular Hgb Conc. 32.1 g/dL (32.0-36.0); Nucleated Red Blood Cells % 0.1 %; White Blood Cell 8.7 10^3/uL (4.4-10.8)
[2017-04-07 02:33] LABS: Eosinophils % (auto) 3.4 % (0.0-7.0); Hematocrit 23.2 % (41.0-53.0); Lymphocytes % (auto) 20.4 % (10.0-50.0); Mean Corpuscular Hemoglobin 29.4 pg (28.0-32.0); Mean Corpuscular Volume 91.4 fL (80.0-100.0); Monocytes # (auto) 0.5 uL; Monocytes % (auto) 5.9 % (0.0-12.0); Neutrophils % (auto) 69.7 % (37.0-80.0); Platelet Count (auto) 202 10^3/uL (140-450); Red Blood Cells 2.53 10^6/uL (4.5-5.90)
[2017-04-07 02:46] LABS: Alanine Aminotransferase 6 U/L (16-61); Albumin 2.1 g/dL (3.4-5.0); Anion Gap 13 (5-15); Aspartate Aminotransferase 8 U/L (15-37); BUN/Creatinine Ratio 6.7; Blood Urea Nitrogen 57 mg/dL (7-18); Calcium 7.8 mg/dL (8.5-10.1); Carbon Dioxide 20 mmol/L (21-32); Chloride 107 mmol/L (98-107); GFR African American 8 mL/min; GFR Non-African American 7 mL/min; Glucose 75 mg/dL (74-106); Sodium 140 mmol/L (136-145)
[2017-04-07 02:48] LABS: INR 1.24 (0.9-1.15); Partial Thromboplastin Time 31.9 sec (22.64-33.71); Prothrombin Time 13.5 sec (9.37-12.3)
[2017-04-07 02:56] LABS: Alkaline Phosphatase 86 U/L (45-117); Bilirubin, Total 0.3 mg/dL (0.2-1.0); Total Protein 7.4 g/dL (6.4-8.2)
[2017-04-07] MEDS ORDERED: NITROGLYCERIN 0.4 MG SL TAB SL PRN (06:15)
[2017-04-07] MEDS ORDERED: MORPHINE SULF INJ 2 MG/ML SYRINGE 1ML IV PRN (06:15)
[2017-04-07] MEDS ORDERED: ONDANSETRON HCL 4 MG/2 ML VIAL IV PRN (07:30)
[2017-04-07] MEDS ORDERED: TEMAZEPAM 15 MG CAP PO PRN (07:30)
[2017-04-07] MEDS: PHENYTOIN SODIUM 100 MG CAP PO SCH ×2 (10:23→22:30)
[2017-04-07] MEDS: ASPirin-EC 81 mg tab PO SCH (10:23)
[2017-04-07] MEDS: METOPROLOL TARTRATE 50 MG TAB PO SCH ×2 (10:23→22:31)
[2017-04-07 11:30] VITALS: BP 120/72
[2017-04-07 15:31] VITALS: BP 120/69
[2017-04-07] MEDS: HYDROcodone-ACET 5/325MG TAB PO PRN (18:31)
[2017-04-07] MEDS: ATORVASTATIN 20 MG TAB PO SCH (22:30)
[2017-04-07] MEDS: traZODone HCL 50 MG TAB PO SCH (22:30)
[2017-04-08] MEDS: METOPROLOL TARTRATE 50 MG TAB PO SCH ×2 (10:26→21:41)
[2017-04-08] MEDS: PHENYTOIN SODIUM 100 MG CAP PO SCH ×2 (10:26→21:40)
[2017-04-08] MEDS: ASPirin-EC 81 mg tab PO SCH (10:26)
[2017-04-08] MEDS ORDERED: EPOETIN ALFA 2,000 UNIT/1 ML VIAL IV ONE (12:45)
[2017-04-08] MEDS ORDERED: SODIUM CHL 0.9% 1000 ML BAG XX ONE (12:45)
[2017-04-08] MEDS ORDERED: EPOETIN ALFA 3,000 UNIT/1 ML VIAL IV ONE (12:45)
[2017-04-08] MEDS ORDERED: EPOETIN ALFA 10,000 UNIT/1 ML VIAL IV ONE (12:45)
[2017-04-08] MEDS: traZODone HCL 50 MG TAB PO SCH (21:40)
[2017-04-08] MEDS: ATORVASTATIN 20 MG TAB PO SCH (21:41)
[2017-04-08 22:00] VITALS: BP 155/72
[2017-04-09 05:00] VITALS: BP 116/61
[2017-04-09 07:33] VITALS: BP 131/97
[2017-04-09] MEDS: HYDROcodone-ACET 5/325MG TAB PO PRN ×2 (09:00→14:23)
[2017-04-09 11:56] VITALS: BP 125/75
[2017-04-09 16:38] VITALS: BP 122/70
[2017-04-09] MEDS: ASPirin-EC 81 mg tab PO SCH (19:42)
[2017-04-09] MEDS: PHENYTOIN SODIUM 100 MG CAP PO SCH ×2 (19:42→21:26)
[2017-04-09] MEDS: METOPROLOL TARTRATE 50 MG TAB PO SCH ×2 (19:43→22:00)
[2017-04-09] MEDS: traZODone HCL 50 MG TAB PO SCH (21:26)
[2017-04-09] MEDS: ATORVASTATIN 20 MG TAB PO SCH (21:26)
[2017-04-09 22:00] VITALS: BP 94/52
[2017-04-10 05:30] VITALS: BP 143/59
[2017-04-10 07:38] VITALS: BP 128/85
[2017-04-10] MEDS: HYDROcodone-ACET 5/325MG TAB PO PRN (10:22)
[2017-04-10] MEDS: ASPirin-EC 81 mg tab PO SCH (10:22)
[2017-04-10] MEDS: METOPROLOL TARTRATE 50 MG TAB PO SCH (10:22)
[2017-04-10] MEDS: PHENYTOIN SODIUM 100 MG CAP PO SCH (10:22)
[2017-04-10 12:14] VITALS: BP 115/65
[2017-04-10 12:45] VITALS: BP 128/83
[2017-07-03] MEDS ORDERED: BACL10TA PO (13:53)
[2017-07-03] MEDS ORDERED: TRAZ100T2 PO (13:53)
[2017-07-03] MEDS ORDERED: WARF5TAB71 PO (13:53)
[2017-07-03] MEDS ORDERED: HYDRX10T PO (13:53)
[2017-07-03] MEDS ORDERED: HYDR50TA15 PO (13:53)
== END 2017-04-10 13:30 | disposition home or self-care (01) | DRG 291 ==
LOC: EDBD 18:25 → EDUNIT# 18:25 → ER 18:31 → TELE 18:32 → TELE-CENTR 04-07 11:17
PROVIDERS: ADMIT Nurse Practitioner Family; ATTEND Family Medicine
PROC: 5A1D70Z Performance of Urinary Filtration, Intermittent, Less than 6 Hours Per Day (ICD-10-PCS; principal; 2017-04-09)
DX: I13.2 Hypertensive heart and chronic kidney disease with heart failure and with stage 5 chronic kidney disease, or end stage renal disease (principal); N18.6 End stage renal disease; E11.22 Type 2 diabetes mellitus with diabetic chronic kidney disease; E46 Unspecified protein-calorie malnutrition; I50.33 Acute on chronic diastolic (congestive) heart failure; D64.9 Anemia, unspecified; E78.5 Hyperlipidemia, unspecified; F03.90 Unspecified dementia, unspecified severity, without behavioral disturbance, psychotic disturbance, mood disturbance, and anxiety; I25.10 Atherosclerotic heart disease of native coronary artery without angina pectoris; K21.9 Gastro-esophageal reflux disease without esophagitis; M10.9 Gout, unspecified; F32.9 Major depressive disorder, single episode, unspecified; Z79.01 Long term (current) use of anticoagulants; Z79.899 Other long term (current) drug therapy; Z82.3 Family history of stroke; Z82.49 Family history of ischemic heart disease and other diseases of the circulatory system; Z86.73 Personal history of transient ischemic attack (TIA), and cerebral infarction without residual deficits; Z91.15 Patient's noncompliance with renal dialysis; Z91.19 Patient's noncompliance with other medical treatment and regimen; Z99.2 Dependence on renal dialysis; I25.2 Old myocardial infarction; Z79.82 Long term (current) use of aspirin; Z88.1 Allergy status to other antibiotic agents; Z68.34 Body mass index [BMI] 34.0-34.9, adult; Z90.49 Acquired absence of other specified parts of digestive tract
CPT/HCPCS: 36415; 71045; 80053; 82140; 83880; 84484; 85025; 85379; 85610; 85730; 87081; 90935; 93005; 96374; 96375; J0885; Q4081

== ENCOUNTER 2017-04-20 05:43 | Emergency (ER) | payer MEDICARE, MEDICAID ==
[~2017-04-20] VITALS: Ht 170.2 cm; Wt 90.7 kg
[2017-04-20 08:11] VITALS: BP 115/88
[2017-07-03] MEDS ORDERED: WARF5TAB71 PO (13:53)
[2017-07-03] MEDS ORDERED: HYDR50TA15 PO (13:53)
[2017-07-03] MEDS ORDERED: HYDRX10T PO (13:53)
[2017-07-03] MEDS ORDERED: BACL10TA PO (13:53)
[2017-07-03] MEDS ORDERED: TRAZ100T2 PO (13:53)
== END 2017-04-20 08:28 | disposition home or self-care (01) ==
LOC: ER 05:43 → EDBD 05:43 → ER 08:28
DX: R42 Dizziness and giddiness (principal); I13.2 Hypertensive heart and chronic kidney disease with heart failure and with stage 5 chronic kidney disease, or end stage renal disease; I50.9 Heart failure, unspecified; N18.6 End stage renal disease; E11.22 Type 2 diabetes mellitus with diabetic chronic kidney disease; K21.9 Gastro-esophageal reflux disease without esophagitis; M10.9 Gout, unspecified; E78.5 Hyperlipidemia, unspecified; I25.2 Old myocardial infarction; Z90.49 Acquired absence of other specified parts of digestive tract; Z88.8 Allergy status to other drugs, medicaments and biological substances; Z79.82 Long term (current) use of aspirin; Z79.01 Long term (current) use of anticoagulants; Z99.2 Dependence on renal dialysis
CPT/HCPCS: 70450; 99284; J7030; J7040

== ENCOUNTER 2017-04-20 15:53 | Inpatient (IN) | payer MEDICARE, MEDICAID ==
[~2017-04-20] VITALS: Ht 170.2 cm; Wt 90.1 kg
[2017-04-20] MEDS ORDERED: HALOPERIDOL LACTATE 5 MG/ML INJ VIAL IM ONE (17:00)
[2017-04-20] MEDS ORDERED: LORazepam 2MG/ML-1ML VIAL IV ONE (17:00)
[2017-04-20] MEDS ORDERED: diphenhdrAMINE HCL 50 MG/1 ML VL IV ONE (17:00)
[2017-04-20 17:59] LABS: Eosinophils # (auto) 0.2 uL; Eosinophils % (auto) 2.5 % (0.0-7.0); Monocytes # (auto) 0.7 uL; White Blood Cell 7.6 10^3/uL (4.4-10.8)
[2017-04-20 18:03] LABS: Basophils # (auto) 0.2 uL; Basophils % (auto) 3.3 % (0.0-2.0); Hematocrit 20.8 % (41.0-53.0); Lymphocytes # (auto) 1.7 uL; Lymphocytes % (auto) 22.7 % (10.0-50.0); Mean Corpuscular Hemoglobin 28.1 pg (28.0-32.0); Mean Corpuscular Volume 87.8 fL (80.0-100.0); Monocytes % (auto) 8.9 % (0.0-12.0); Neutrophils # (auto) 4.7 uL; Neutrophils % (auto) 62.6 % (37.0-80.0); Nucleated Red Blood Cells % 0.2 %; Platelet Count (auto) 229 10^3/uL (140-450); Red Blood Cells 2.37 10^6/uL (4.5-5.90); Red Cell Distribution Width 17.9 % (11.8-14.3)
[2017-04-20 18:13] LABS: Alanine Aminotransferase 6 U/L (16-61); Albumin 1.9 g/dL (3.4-5.0); Anion Gap 16 (5-15); Aspartate Aminotransferase 8 U/L (15-37); BUN/Creatinine Ratio 6.1; Blood Urea Nitrogen 43 mg/dL (7-18); Calcium 7.3 mg/dL (8.5-10.1); Carbon Dioxide 19 mmol/L (21-32); Chloride 102 mmol/L (98-107); GFR African American 10 mL/min; GFR Non-African American 8 mL/min; Glucose 73 mg/dL (74-106); Potassium 3.5 mmol/L (3.5-5.1); Sodium 137 mmol/L (136-145)
[2017-04-20 18:15] LABS: Hemoglobin 6.7 g/dL (13.5-17.5)
[2017-04-20 18:18] LABS: Alkaline Phosphatase 67 U/L (45-117); Bilirubin, Total 0.2 mg/dL (0.2-1.0); Total Protein 7.1 g/dL (6.4-8.2)
[2017-04-20 19:04] LABS: INR 1.28 (0.9-1.15); Partial Thromboplastin Time 36.5 sec (22.64-33.71)
[2017-04-20] MEDS ORDERED: BACLOFEN 10 MG TAB PO PRN (20:45)
[2017-04-20] MEDS ORDERED: HYDROcodone-ACET 5/325MG TAB PO PRN (20:45)
[2017-04-20] MEDS ORDERED: NIFEdipine ER 30 MG TAB PO ONE (21:30)
[2017-04-20] MEDS ORDERED: WARFARIN SODIUM 2.5 MG TAB PO ONE (21:45)
[2017-04-20 22:00] VITALS: BP 83/51
[2017-04-20] MEDS: METOPROLOL TARTRATE 25 MG TAB PO SCH (22:00)
[2017-04-20] MEDS ORDERED: PHENYTOIN SODIUM 100 MG CAP PO ONE (22:00)
[2017-04-20] MEDS: hydrALAZINE HCL 25 MG TAB PO SCH (22:00)
[2017-04-20 22:17] VITALS: BP 87/52
[2017-04-20] MEDS ORDERED: NITROGLYCERIN 0.4 MG SL TAB SL PRN (23:00)
[2017-04-20] MEDS ORDERED: MORPHINE SULF INJ 2 MG/ML SYRINGE 1ML IV PRN (23:00)
[2017-04-21] VITALS (7 sets, daily range): BP systolic 99–128; BP diastolic 56–78
[2017-04-21 01:52] LABS: Urine Bacteria NONE SEEN /hpf (None Seen); Urine Blood TRACE /uL (Negative); Urine Specific Gravity 1.005 (1.001-1.035); Urine WBC <1 /hpf (0 - 3)
[2017-04-21] MEDS: PHENYTOIN SODIUM 100 MG CAP PO SCH ×3 (05:56→22:00)
[2017-04-21] MEDS: CLOPIDOGREL BISULFATE 75 MG TAB PO SCH (10:00)
[2017-04-21] MEDS: PANTOPRAZOLE 40 MG TAB PO SCH (10:00)
[2017-04-21] MEDS: FLUDROCORTISONE ACETATE 0.1 MG TAB PO SCH (10:00)
[2017-04-21] MEDS: COLCHICINE 0.6 MG TAB PO SCH (10:00)
[2017-04-21] MEDS ORDERED: WARFARIN SODIUM 5 MG TAB PO SCH (10:00)
[2017-04-21] MEDS: ASPirin 81 mg TAB PO SCH (10:00)
[2017-04-21] MEDS: hydrALAZINE HCL 25 MG TAB PO SCH ×2 (10:00→22:00)
[2017-04-21] MEDS: NIFEdipine ER 30 MG TAB PO SCH (10:00)
[2017-04-21] MEDS: ALLOPURINOL 100 MG TAB PO SCH (10:00)
[2017-04-21] MEDS: METOPROLOL TARTRATE 25 MG TAB PO SCH ×2 (10:00→22:00)
[2017-04-21 11:21] LABS: Eosinophils # (auto) 0.1 uL; Mean Corpuscular Hemoglobin 28.9 pg (28.0-32.0); Monocytes # (auto) 0.7 uL; Platelet Count (auto) 251 10^3/uL (140-450)
[2017-04-21 11:23] LABS: Basophils # (auto) 0 uL; Basophils % (auto) 0.4 % (0.0-2.0); Eosinophils % (auto) 1.3 % (0.0-7.0); Hematocrit 25.4 % (41.0-53.0); Hemoglobin 8.3 g/dL (13.5-17.5); Lymphocytes # (auto) 1.1 uL; Lymphocytes % (auto) 12.5 % (10.0-50.0); Mean Corpuscular Hgb Conc. 32.6 g/dL (32.0-36.0); Mean Corpuscular Volume 88.7 fL (80.0-100.0); Monocytes % (auto) 7.8 % (0.0-12.0); Neutrophils # (auto) 6.6 uL; Red Blood Cells 2.87 10^6/uL (4.5-5.90); White Blood Cell 8.5 10^3/uL (4.4-10.8)
[2017-04-21 11:33] LABS: INR 1.48 (0.9-1.15); Prothrombin Time 16.2 sec (9.37-12.3)
[2017-04-21 11:35] LABS: BUN/Creatinine Ratio 6.7; Calcium 7.6 mg/dL (8.5-10.1); Magnesium 1.8 mg/dL (1.6-2.6); Potassium 4.3 mmol/L (3.5-5.1)
[2017-04-21] MEDS ORDERED: EPOETIN ALFA 10,000 UNIT/1 ML VIAL IV ONE (14:45)
[2017-04-21] MEDS ORDERED: SODIUM CHL 0.9% 1000 ML BAG XX ONE (14:45)
[2017-04-21] MEDS ORDERED: WARFARIN SODIUM 2.5 MG TAB PO ONE (17:00)
[2017-04-22 05:00] VITALS: BP 134/87
[2017-04-22] MEDS: PHENYTOIN SODIUM 100 MG CAP PO SCH ×3 (06:00→23:42)
[2017-04-22] MEDS: PANTOPRAZOLE 40 MG TAB PO SCH (10:00)
[2017-04-22] MEDS: ALLOPURINOL 100 MG TAB PO SCH (10:00)
[2017-04-22] MEDS: COLCHICINE 0.6 MG TAB PO SCH (10:00)
[2017-04-22] MEDS: hydrALAZINE HCL 25 MG TAB PO SCH ×2 (10:00→23:42)
[2017-04-22] MEDS: CLOPIDOGREL BISULFATE 75 MG TAB PO SCH (10:00)
[2017-04-22] MEDS: METOPROLOL TARTRATE 25 MG TAB PO SCH ×2 (10:00→23:43)
[2017-04-22] MEDS: ASPirin 81 mg TAB PO SCH (10:00)
[2017-04-22] MEDS: NIFEdipine ER 30 MG TAB PO SCH (10:00)
[2017-04-22] MEDS: FLUDROCORTISONE ACETATE 0.1 MG TAB PO SCH (10:00)
[2017-04-22 17:42] LABS: Basophils # (auto) 0 uL; Basophils % (auto) 0.6 % (0.0-2.0); Eosinophils # (auto) 0.2 uL; Eosinophils % (auto) 1.9 % (0.0-7.0); Hematocrit 29.2 % (41.0-53.0); Hemoglobin 9.3 g/dL (13.5-17.5); Lymphocytes # (auto) 0.9 uL; Lymphocytes % (auto) 11.6 % (10.0-50.0); Mean Corpuscular Hemoglobin 28.2 pg (28.0-32.0); Mean Corpuscular Hgb Conc. 31.8 g/dL (32.0-36.0); Mean Corpuscular Volume 88.8 fL (80.0-100.0); Monocytes # (auto) 0.6 uL; Monocytes % (auto) 7.8 % (0.0-12.0); Neutrophils # (auto) 6.1 uL; Neutrophils % (auto) 78.1 % (37.0-80.0); Nucleated Red Blood Cells % 0.1 %; Platelet Count (auto) 257 10^3/uL (140-450); Red Blood Cells 3.29 10^6/uL (4.5-5.90); Red Cell Distribution Width 17.8 % (11.8-14.3); White Blood Cell 7.9 10^3/uL (4.4-10.8)
[2017-04-22 17:54] LABS: INR 1.57 (0.9-1.15); Partial Thromboplastin Time 37.7 sec (22.64-33.71); Prothrombin Time 17.2 sec (9.37-12.3)
[2017-04-22 18:12] LABS: Albumin 1.9 g/dL (3.4-5.0); Bilirubin, Total 0.3 mg/dL (0.2-1.0); Calcium 8.1 mg/dL (8.5-10.1); Potassium 4.2 mmol/L (3.5-5.1); Total Protein 8.6 g/dL (6.4-8.2)
[2017-04-22] MEDS ORDERED: WARFARIN SODIUM 2.5 MG TAB PO ONE (18:45)
[2017-04-22 21:43] VITALS: BP 130/77
[2017-04-23 05:09] VITALS: BP 122/74
[2017-04-23] MEDS: PHENYTOIN SODIUM 100 MG CAP PO SCH ×2 (06:36→14:00)
[2017-04-23 08:30] VITALS: BP 159/93
[2017-04-23] MEDS: ASPirin 81 mg TAB PO SCH (09:50)
[2017-04-23] MEDS: ALLOPURINOL 100 MG TAB PO SCH (09:50)
[2017-04-23] MEDS: PANTOPRAZOLE 40 MG TAB PO SCH (09:50)
[2017-04-23] MEDS: METOPROLOL TARTRATE 25 MG TAB PO SCH (09:53)
[2017-04-23] MEDS: FLUDROCORTISONE ACETATE 0.1 MG TAB PO SCH (09:53)
[2017-04-23] MEDS: CLOPIDOGREL BISULFATE 75 MG TAB PO SCH (09:54)
[2017-04-23] MEDS: COLCHICINE 0.6 MG TAB PO SCH (09:55)
[2017-04-23 10:00] LABS: INR 1.59 (0.9-1.15); Prothrombin Time 17.4 sec (9.37-12.3)
[2017-04-23] MEDS: NIFEdipine ER 30 MG TAB PO SCH (10:10)
[2017-04-23] MEDS: hydrALAZINE HCL 25 MG TAB PO SCH (10:11)
[2017-04-23 12:29] VITALS: BP 130/85
[2017-04-23 13:00] VITALS: BP 112/64
[2017-04-23 16:39] VITALS: BP 122/74
[2017-04-23] MEDS ORDERED: WARFARIN SODIUM 2.5 MG TAB PO ONE (17:00)
[2017-04-23 17:48] VITALS: BP 122/76
[2017-07-03] MEDS ORDERED: HYDR50TA15 PO (13:53)
[2017-07-03] MEDS ORDERED: BACL10TA PO (13:53)
[2017-07-03] MEDS ORDERED: TRAZ100T2 PO (13:53)
[2017-07-03] MEDS ORDERED: HYDRX10T PO (13:53)
[2017-07-03] MEDS ORDERED: WARF5TAB71 PO (13:53)
== END 2017-04-23 18:35 | disposition home or self-care (01) | DRG 70 ==
LOC: EDBD 15:53 → ER 15:53 → TELE 15:54 → TELE-WESTW 23:35
PROVIDERS: ADMIT Nurse Practitioner Acute Care; ATTEND Nurse Practitioner Acute Care
PROC: 30233N1 Transfusion of Nonautologous Red Blood Cells into Peripheral Vein, Percutaneous Approach (ICD-10-PCS; principal; 2017-04-20)
PROC: 5A1D70Z Performance of Urinary Filtration, Intermittent, Less than 6 Hours Per Day (ICD-10-PCS; 2017-04-22)
DX: G93.41 Metabolic encephalopathy (principal); N18.6 End stage renal disease; I13.2 Hypertensive heart and chronic kidney disease with heart failure and with stage 5 chronic kidney disease, or end stage renal disease; E44.0 Moderate protein-calorie malnutrition; E11.21 Type 2 diabetes mellitus with diabetic nephropathy; I50.32 Chronic diastolic (congestive) heart failure; D64.89 Other specified anemias; F03.90 Unspecified dementia, unspecified severity, without behavioral disturbance, psychotic disturbance, mood disturbance, and anxiety; F32.9 Major depressive disorder, single episode, unspecified; F41.9 Anxiety disorder, unspecified; G40.909 Epilepsy, unspecified, not intractable, without status epilepticus; I25.10 Atherosclerotic heart disease of native coronary artery without angina pectoris; K21.9 Gastro-esophageal reflux disease without esophagitis; E21.3 Hyperparathyroidism, unspecified; M10.9 Gout, unspecified; I70.0 Atherosclerosis of aorta; Z51.5 Encounter for palliative care; E11.22 Type 2 diabetes mellitus with diabetic chronic kidney disease; Z68.31 Body mass index [BMI] 31.0-31.9, adult; Z88.8 Allergy status to other drugs, medicaments and biological substances; Z79.82 Long term (current) use of aspirin; Z79.899 Other long term (current) drug therapy; Z90.49 Acquired absence of other specified parts of digestive tract; I69.398 Other sequelae of cerebral infarction; Z82.3 Family history of stroke; Z82.49 Family history of ischemic heart disease and other diseases of the circulatory system; Z91.15 Patient's noncompliance with renal dialysis; Z99.2 Dependence on renal dialysis
CPT/HCPCS: 36415; 36430; 70450; 71045; 80048; 80053; 80185; 81001; 82962; 83735; 83880; 84100; 84484; 85025; 85610; 85730; 86850; 86900; 86901; 86920; 87081; 90935; 93005; 96372; 96374; 96375; J0885; J1642

== ENCOUNTER 2017-04-25 01:29 | Inpatient (IN) | payer MEDICARE, MEDICAID ==
[~2017-04-25] VITALS: Ht 170.2 cm; Wt 89.2 kg
[2017-04-25 02:18] LABS: Basophils # (auto) 0.1 uL; Basophils % (auto) 0.7 % (0.0-2.0); Eosinophils # (auto) 0.3 uL; Eosinophils % (auto) 2.9 % (0.0-7.0); Hematocrit 27.3 % (41.0-53.0); Hemoglobin 8.7 g/dL (13.5-17.5); Lymphocytes # (auto) 1.7 uL; Mean Corpuscular Volume 87.5 fL (80.0-100.0); Monocytes # (auto) 0.6 uL; Monocytes % (auto) 7.2 % (0.0-12.0); Neutrophils # (auto) 6.1 uL; Neutrophils % (auto) 70.2 % (37.0-80.0); Platelet Count (auto) 267 10^3/uL (140-450); Red Blood Cells 3.13 10^6/uL (4.5-5.90); Red Cell Distribution Width 18.1 % (11.8-14.3); White Blood Cell 8.7 10^3/uL (4.4-10.8)
[2017-04-25 02:30] LABS: BUN/Creatinine Ratio 5.2; Bilirubin, Total 0.4 mg/dL (0.2-1.0); Calcium 8.1 mg/dL (8.5-10.1); Potassium 3.6 mmol/L (3.5-5.1); Total Protein 8.7 g/dL (6.4-8.2)
[2017-04-25 02:32] LABS: INR 1.89 (0.9-1.15); Partial Thromboplastin Time 39.6 sec (22.64-33.71); Prothrombin Time 20.7 sec (9.37-12.3)
[2017-04-25] MEDS ORDERED: cefTRIAXone 1GM/10ml IVPUSH 10 ML IV ONE (11:00)
[2017-04-25] MEDS ORDERED: BACLOFEN 10 MG TAB PO PRN (11:15)
[2017-04-25] MEDS ORDERED: LORazepam 0.5 MG TAB PO PRN (11:15)
[2017-04-25] MEDS ORDERED: ACETAMINOPHEN 500 MG TAB PO PRN (11:15)
[2017-04-25] MEDS ORDERED: DEXTROSE (50%) 50ML SYRG IV PRN (11:15)
[2017-04-25] MEDS ORDERED: ALBUTEROL SULF 2.5 MG/0.5ML(0.5%) NEB SOLN NEB PRN (11:15)
[2017-04-25] MEDS ORDERED: VANCOMYCIN PER PHARMACY 0 MG IV SCH (11:15)
[2017-04-25] MEDS ORDERED: HYDROcodone-ACET 5/325MG TAB PO PRN (11:15)
[2017-04-25] MEDS ORDERED: NITROGLYCERIN 0.4 MG SL TAB SL PRN (11:15)
[2017-04-25] MEDS ORDERED: HYDROmorphone HCL 2 MG/ML VL IV PRN (11:15)
[2017-04-25] MEDS ORDERED: OSELTAMIVIR 75 MG CAP PO ONE (11:15)
[2017-04-25] MEDS: InsuLIN REG 1unit/0.01ml Soln (100units/ml) SC SCH ×3 (11:30→22:41)
[2017-04-25] MEDS: PROMETHAZINE HCL 25 MG/ML 1ML IV PRN (11:35)
[2017-04-25] MEDS: ACCU-CHEK COMFORT CURVE STRIP VI SCH ×3 (11:42→22:41)
[2017-04-25] MEDS ORDERED: OSELTAMIVIR 30 MG CAP PO SCH (11:45)
[2017-04-25] MEDS ORDERED: FLUDROCORTISONE ACETATE 0.1 MG TAB PO ONE (12:00)
[2017-04-25] MEDS ORDERED: PANTOPRAZOLE 40 MG TAB PO ONE (12:00)
[2017-04-25] MEDS ORDERED: ASPirin 81 mg TAB PO ONE (12:00)
[2017-04-25] MEDS ORDERED: MEROPENEM 500mg/10ml IVPUSH 10 ML IV ONE (12:00)
[2017-04-25] MEDS ORDERED: AZITHROMYCIN 500MG/ 250ML 250 ML IV ONE (12:00)
[2017-04-25] MEDS ORDERED: METOPROLOL TARTRATE 25 MG TAB PO ONE (12:00)
[2017-04-25] MEDS ORDERED: ALLOPURINOL 100 MG TAB PO ONE (12:00)
[2017-04-25] MEDS ORDERED: CLOPIDOGREL BISULFATE 75 MG TAB PO ONE (12:00)
[2017-04-25 12:12] VITALS: BP 132/67
[2017-04-25] MEDS ORDERED: VANCOMYCIN 1,500 MG in D5W 5% 250 ML IV ONE (12:15)
[2017-04-25] MEDS: IPRATROPIUM BROM 0.5 MG/2.5ML INH SOL NEB SCH ×2 (12:43→20:13)
[2017-04-25] MEDS: ALBUTEROL SULF 2.5 MG/0.5ML(0.5%) NEB SOLN NEB SCH ×2 (12:43→20:13)
[2017-04-25] MEDS: SODIUM CHLOR 0.9% PF (SALINE LOCK) 10ML VIAL IV SCH ×2 (13:16→22:00)
[2017-04-25] MEDS: COLCHICINE 0.6 MG TAB PO SCH (13:19)
[2017-04-25] MEDS: PHENYTOIN SODIUM 100 MG CAP PO SCH ×2 (13:24→22:41)
[2017-04-25 14:32] VITALS: BP 141/71
[2017-04-25] MEDS ORDERED: WARFARIN SODIUM 5 MG TAB PO ONE (17:00)
[2017-04-25 22:00] VITALS: BP 99/56
[2017-04-25] MEDS ORDERED: METOPROLOL TARTRATE 25 MG TAB PO SCH (22:00)
[2017-04-25] MEDS: METOPROLOL TARTRATE 25 MG TAB PO SCH (22:00)
[2017-04-25] MEDS: TEMAZEPAM 15 MG CAP PO PRN (22:54)
[2017-04-26] MEDS: IPRATROPIUM BROM 0.5 MG/2.5ML INH SOL NEB SCH ×4 (00:46→19:29)
[2017-04-26] MEDS: ALBUTEROL SULF 2.5 MG/0.5ML(0.5%) NEB SOLN NEB SCH ×4 (00:47→19:29)
[2017-04-26 05:00] VITALS: BP 90/50
[2017-04-26] MEDS: SODIUM CHLOR 0.9% PF (SALINE LOCK) 10ML VIAL IV SCH ×3 (06:00→22:00)
[2017-04-26] MEDS: PHENYTOIN SODIUM 100 MG CAP PO SCH ×3 (06:06→22:12)
[2017-04-26] MEDS: InsuLIN REG 1unit/0.01ml Soln (100units/ml) SC SCH ×3 (06:31→16:40)
[2017-04-26] MEDS: ACCU-CHEK COMFORT CURVE STRIP VI SCH ×3 (06:31→16:40)
[2017-04-26 08:00] VITALS: BP 134/82
[2017-04-26 08:52] VITALS: BP 134/82
[2017-04-26] MEDS: COLCHICINE 0.6 MG TAB PO SCH ×2 (09:46→10:00)
[2017-04-26] MEDS: CLOPIDOGREL BISULFATE 75 MG TAB PO SCH (09:47)
[2017-04-26] MEDS: METOPROLOL TARTRATE 25 MG TAB PO SCH ×3 (09:47→22:00)
[2017-04-26] MEDS: ALLOPURINOL 100 MG TAB PO SCH ×2 (09:47→10:00)
[2017-04-26] MEDS: ASPirin 81 mg TAB PO SCH ×2 (09:48→10:00)
[2017-04-26] MEDS: FLUDROCORTISONE ACETATE 0.1 MG TAB PO SCH ×2 (09:48→10:00)
[2017-04-26] MEDS: PANTOPRAZOLE 40 MG TAB PO SCH ×2 (09:48→10:00)
[2017-04-26] MEDS: MEROPENEM 500mg/10ml IVPUSH 10 ML IV SCH (10:00)
[2017-04-26] MEDS: AZITHROMYCIN 500MG/ 250ML 250 ML IV SCH (10:20)
[2017-04-26] MEDS: PROMETHAZINE HCL 25 MG/ML 1ML IV PRN (10:21)
[2017-04-26 11:25] VITALS: BP 122/72
[2017-04-26 13:29] LABS: INR 1.07 (0.9-1.15); Partial Thromboplastin Time 34.5 sec (22.64-33.71); Prothrombin Time 11.7 sec (9.37-12.3)
[2017-04-26 13:43] LABS: CRP High Sensitivity 2.88 mg/dL (< 0.3)
[2017-04-26 16:42] VITALS: BP 124/77
[2017-04-26] MEDS ORDERED: WARFARIN SODIUM 2.5 MG TAB PO ONE (17:45)
[2017-04-26] MEDS ORDERED: VANCOMYCIN 1GM/250ML 250 ML IV ONE (18:00)
[2017-04-26 22:17] VITALS: BP 117/64
[2017-04-27] MEDS: TEMAZEPAM 15 MG CAP PO PRN ×2 (00:01→20:58)
[2017-04-27] MEDS: IPRATROPIUM BROM 0.5 MG/2.5ML INH SOL NEB SCH ×4 (01:05→19:18)
[2017-04-27] MEDS: ALBUTEROL SULF 2.5 MG/0.5ML(0.5%) NEB SOLN NEB SCH ×4 (01:05→19:18)
[2017-04-27 05:13] VITALS: BP 104/65
[2017-04-27] MEDS: SODIUM CHLOR 0.9% PF (SALINE LOCK) 10ML VIAL IV SCH ×3 (05:32→20:48)
[2017-04-27] MEDS: PHENYTOIN SODIUM 100 MG CAP PO SCH ×3 (07:00→20:41)
[2017-04-27 08:00] VITALS: BP 104/65
[2017-04-27 08:35] LABS: Basophils # (auto) 0.1 uL; Basophils % (auto) 0.8 % (0.0-2.0); Eosinophils # (auto) 0.3 uL; Eosinophils % (auto) 4.3 % (0.0-7.0); Hematocrit 27.2 % (41.0-53.0); Hemoglobin 8.8 g/dL (13.5-17.5); Lymphocytes # (auto) 1.5 uL; Lymphocytes % (auto) 20.7 % (10.0-50.0); Mean Corpuscular Hemoglobin 27.9 pg (28.0-32.0); Mean Corpuscular Hgb Conc. 32.2 g/dL (32.0-36.0); Mean Corpuscular Volume 86.5 fL (80.0-100.0); Monocytes # (auto) 0.5 uL; Monocytes % (auto) 7.3 % (0.0-12.0); Neutrophils % (auto) 66.9 % (37.0-80.0); Platelet Count (auto) 247 10^3/uL (140-450); Red Blood Cells 3.14 10^6/uL (4.5-5.90); Red Cell Distribution Width 18.5 % (11.8-14.3); White Blood Cell 7.5 10^3/uL (4.4-10.8)
[2017-04-27 08:53] LABS: Alanine Aminotransferase 13 U/L (16-61); Albumin 1.8 g/dL (3.4-5.0); Anion Gap 11 (5-15); Aspartate Aminotransferase 23 U/L (15-37); BUN/Creatinine Ratio 5.6; Blood Urea Nitrogen 43 mg/dL (7-18); Calcium 8.2 mg/dL (8.5-10.1); Carbon Dioxide 26 mmol/L (21-32); Chloride 97 mmol/L (98-107); GFR African American 9 mL/min; GFR Non-African American 8 mL/min; Glucose 83 mg/dL (74-106); Potassium 3.8 mmol/L (3.5-5.1); Sodium 134 mmol/L (136-145)
[2017-04-27 09:00] VITALS: BP 101/53
[2017-04-27 09:07] LABS: Alkaline Phosphatase 84 U/L (45-117); Bilirubin, Total 0.3 mg/dL (0.2-1.0); Total Protein 8.5 g/dL (6.4-8.2)
[2017-04-27] MEDS: CLOPIDOGREL BISULFATE 75 MG TAB PO SCH (09:56)
[2017-04-27] MEDS: ASPirin 81 mg TAB PO SCH (09:57)
[2017-04-27] MEDS: MEROPENEM 500mg/10ml IVPUSH 10 ML IV SCH (09:58)
[2017-04-27] MEDS: COLCHICINE 0.6 MG TAB PO SCH (09:58)
[2017-04-27] MEDS: METOPROLOL TARTRATE 25 MG TAB PO SCH ×2 (09:58→20:42)
[2017-04-27] MEDS: FLUDROCORTISONE ACETATE 0.1 MG TAB PO SCH (09:58)
[2017-04-27] MEDS: AZITHROMYCIN 500MG/ 250ML 250 ML IV SCH (09:58)
[2017-04-27] MEDS: PANTOPRAZOLE 40 MG TAB PO SCH (09:59)
[2017-04-27] MEDS: ALLOPURINOL 100 MG TAB PO SCH (09:59)
[2017-04-27 13:00] VITALS: BP 95/44
[2017-04-27] MEDS ORDERED: cefTRIAXone 1GM/10ml IVPUSH 10 ML IV ONE (16:00)
[2017-04-27 16:34] VITALS: BP 104/57
[2017-04-27] MEDS: PRO-STAT 64 30ML PO SCH (17:02)
[2017-04-27 17:34] LABS: INR 2.72 (0.9-1.15); Partial Thromboplastin Time 41.5 sec (22.64-33.71); Prothrombin Time 29.9 sec (9.37-12.3)
[2017-04-27] MEDS: PROMETHAZINE HCL 25 MG/ML 1ML IV PRN (18:08)
[2017-04-27 22:00] VITALS: BP 105/66
[2017-04-28 05:00] VITALS: BP 105/67
[2017-04-28] MEDS: SODIUM CHLOR 0.9% PF (SALINE LOCK) 10ML VIAL IV SCH ×2 (05:45→14:00)
[2017-04-28] MEDS: PHENYTOIN SODIUM 100 MG CAP PO SCH ×2 (05:46→14:00)
[2017-04-28] MEDS: IPRATROPIUM BROM 0.5 MG/2.5ML INH SOL NEB SCH ×3 (06:40→12:00)
[2017-04-28] MEDS: ALBUTEROL SULF 2.5 MG/0.5ML(0.5%) NEB SOLN NEB SCH ×3 (06:40→12:00)
[2017-04-28 07:24] VITALS: BP 105/67
[2017-04-28] MEDS ORDERED: SODIUM CHL 0.9% 1000 ML BAG XX ONE (08:00)
[2017-04-28] MEDS ORDERED: EPOETIN ALFA 10,000 UNIT/1 ML VIAL IV ONE (08:00)
[2017-04-28 08:33] VITALS: BP 118/80
[2017-04-28] MEDS ORDERED: cefTRIAXone 1GM/10ml IVPUSH 10 ML IV SCH (09:00)
[2017-04-28] MEDS: ALLOPURINOL 100 MG TAB PO SCH (10:00)
[2017-04-28] MEDS: AZITHROMYCIN 500MG/ 250ML 250 ML IV SCH (10:00)
[2017-04-28] MEDS: ASPirin 81 mg TAB PO SCH (10:00)
[2017-04-28] MEDS: PRO-STAT 64 30ML PO SCH (10:00)
[2017-04-28] MEDS: COLCHICINE 0.6 MG TAB PO SCH (10:00)
[2017-04-28] MEDS: METOPROLOL TARTRATE 25 MG TAB PO SCH (10:00)
[2017-04-28] MEDS: CLOPIDOGREL BISULFATE 75 MG TAB PO SCH (10:00)
[2017-04-28] MEDS: FLUDROCORTISONE ACETATE 0.1 MG TAB PO SCH (10:00)
[2017-04-28] MEDS: PANTOPRAZOLE 40 MG TAB PO SCH (10:00)
[2017-04-28 12:45] VITALS: BP 95/63
[2017-07-03] MEDS ORDERED: BACL10TA PO (13:53)
[2017-07-03] MEDS ORDERED: TRAZ100T2 PO (13:53)
[2017-07-03] MEDS ORDERED: HYDR50TA15 PO (13:53)
[2017-07-03] MEDS ORDERED: WARF5TAB71 PO (13:53)
[2017-07-03] MEDS ORDERED: HYDRX10T PO (13:53)
== END 2017-04-28 14:45 | disposition left against medical advice (07) | DRG 871 ==
LOC: EDBD 01:29 → ER 01:37 → TELE 01:38 → TELE-WESTW 14:44 → WEST WING 04-27 01:54
PROVIDERS: ADMIT Internal Medicine; ATTEND Internal Medicine
PROC: 02H633Z Insertion of Infusion Device into Right Atrium, Percutaneous Approach (ICD-10-PCS; 2017-04-25)
PROC: 5A1D70Z Performance of Urinary Filtration, Intermittent, Less than 6 Hours Per Day (ICD-10-PCS; principal; 2017-04-28)
DX: A41.9 Sepsis, unspecified organism (principal); J18.9 Pneumonia, unspecified organism; E43 Unspecified severe protein-calorie malnutrition; I13.2 Hypertensive heart and chronic kidney disease with heart failure and with stage 5 chronic kidney disease, or end stage renal disease; I50.32 Chronic diastolic (congestive) heart failure; E11.22 Type 2 diabetes mellitus with diabetic chronic kidney disease; N18.6 End stage renal disease; Z53.21 Procedure and treatment not carried out due to patient leaving prior to being seen by health care provider; D63.8 Anemia in other chronic diseases classified elsewhere; E78.5 Hyperlipidemia, unspecified; F03.90 Unspecified dementia, unspecified severity, without behavioral disturbance, psychotic disturbance, mood disturbance, and anxiety; F29 Unspecified psychosis not due to a substance or known physiological condition; G40.909 Epilepsy, unspecified, not intractable, without status epilepticus; F41.9 Anxiety disorder, unspecified; G47.00 Insomnia, unspecified; I25.10 Atherosclerotic heart disease of native coronary artery without angina pectoris; K21.9 Gastro-esophageal reflux disease without esophagitis; F32.9 Major depressive disorder, single episode, unspecified; M10.9 Gout, unspecified; Z51.5 Encounter for palliative care; Z86.73 Personal history of transient ischemic attack (TIA), and cerebral infarction without residual deficits; Z90.49 Acquired absence of other specified parts of digestive tract; Z88.5 Allergy status to narcotic agent; Z82.3 Family history of stroke; Z82.49 Family history of ischemic heart disease and other diseases of the circulatory system; Z68.30 Body mass index [BMI] 30.0-30.9, adult; Z99.2 Dependence on renal dialysis; Z86.711 Personal history of pulmonary embolism; Z91.15 Patient's noncompliance with renal dialysis; Z91.19 Patient's noncompliance with other medical treatment and regimen; Z95.5 Presence of coronary angioplasty implant and graft
CPT/HCPCS: 36415; 70450; 71045; 71046; 80053; 80202; 82550; 82962; 83036; 83735; 83880; 84484; 85025; 85379; 85610; 85652; 85730; 86141; 87040; 87081; 87400; 90935; 93005; 93970; 94640; 96365; 96375; 96379; G9035; J0885; J1642; J7060

== ENCOUNTER 2017-04-30 22:37 | Emergency (ER) | payer MEDICARE, MEDICAID ==
[~2017-04-30] VITALS: Ht 170.2 cm; Wt 109.8 kg
[~2017-04-30 22:37] MED LIST changes: -ALLO100T; -BACL10TA PO; -COLC0.6T; -FLU01T PO
[2017-04-30 22:39] VITALS: BP 96/58
[2017-04-30 23:22] LABS: Basophils # (auto) 0.1 uL; Basophils % (auto) 0.9 % (0.0-2.0); Eosinophils # (auto) 0.2 uL; Eosinophils % (auto) 3.3 % (0.0-7.0); Hematocrit 27.1 % (41.0-53.0); Hemoglobin 8.6 g/dL (13.5-17.5); Lymphocytes # (auto) 1.3 uL; Lymphocytes % (auto) 19.9 % (10.0-50.0); Mean Corpuscular Hemoglobin 27.9 pg (28.0-32.0); Mean Corpuscular Hgb Conc. 31.7 g/dL (32.0-36.0); Monocytes # (auto) 0.4 uL; Monocytes % (auto) 5.9 % (0.0-12.0); Neutrophils # (auto) 4.6 uL; Nucleated Red Blood Cells % 0.1 %; Platelet Count (auto) 276 10^3/uL (140-450); Red Blood Cells 3.08 10^6/uL (4.5-5.90); Red Cell Distribution Width 18.8 % (11.8-14.3); White Blood Cell 6.6 10^3/uL (4.4-10.8)
[2017-04-30 23:38] LABS: Alanine Aminotransferase 10 U/L (16-61); Albumin 2.1 g/dL (3.4-5.0); Anion Gap 15 (5-15); Aspartate Aminotransferase 12 U/L (15-37); BUN/Creatinine Ratio 4.9; Blood Urea Nitrogen 39 mg/dL (7-18); Calcium 8.2 mg/dL (8.5-10.1); Carbon Dioxide 25 mmol/L (21-32); Chloride 95 mmol/L (98-107); GFR African American 9 mL/min; GFR Non-African American 7 mL/min; Glucose 80 mg/dL (74-106); Magnesium 2.2 mg/dL (1.6-2.6); Potassium 3.6 mmol/L (3.5-5.1); Sodium 135 mmol/L (136-145)
[2017-04-30 23:41] LABS: Alkaline Phosphatase 85 U/L (45-117); Bilirubin, Total 0.3 mg/dL (0.2-1.0); Total Protein 8.8 g/dL (6.4-8.2)
[2017-04-30 23:47] LABS: INR 1.47 (0.9-1.15); Prothrombin Time 16.1 sec (9.37-12.3)
[2017-07-03] MEDS ORDERED: BACL10TA PO (13:53)
[2017-07-03] MEDS ORDERED: TRAZ100T2 PO (13:53)
[2017-07-03] MEDS ORDERED: WARF5TAB71 PO (13:53)
[2017-07-03] MEDS ORDERED: HYDR50TA15 PO (13:53)
[2017-07-03] MEDS ORDERED: HYDRX10T PO (13:53)
== END 2017-05-01 04:58 | disposition home or self-care (01) ==
LOC: EDBD 22:37 → ER 22:45
DX: S93.401A Sprain of unspecified ligament of right ankle, initial encounter (principal); R07.89 Other chest pain; I13.2 Hypertensive heart and chronic kidney disease with heart failure and with stage 5 chronic kidney disease, or end stage renal disease; N18.6 End stage renal disease; I25.10 Atherosclerotic heart disease of native coronary artery without angina pectoris; I50.9 Heart failure, unspecified; E11.22 Type 2 diabetes mellitus with diabetic chronic kidney disease; K21.9 Gastro-esophageal reflux disease without esophagitis; M10.9 Gout, unspecified; E78.5 Hyperlipidemia, unspecified; I25.2 Old myocardial infarction; Z90.49 Acquired absence of other specified parts of digestive tract; Z79.01 Long term (current) use of anticoagulants; Z88.0 Allergy status to penicillin; Z99.2 Dependence on renal dialysis; Z79.82 Long term (current) use of aspirin; Z86.73 Personal history of transient ischemic attack (TIA), and cerebral infarction without residual deficits; X58.XXXA Exposure to other specified factors, initial encounter; Y93.72 Activity, wrestling; Y99.8 Other external cause status; Y92.89 Other specified places as the place of occurrence of the external cause
CPT/HCPCS: 36415; 71045; 73600; 80053; 80320; 83735; 83880; 84484; 85025; 85610; 85730; 93005

== ENCOUNTER 2017-05-01 22:23 | Emergency (ER) | payer MEDICARE, MEDICAID ==
[~2017-05-01] VITALS: Ht 170.2 cm; Wt 109.8 kg
[2017-05-01 22:39] VITALS: BP 127/76
[2017-07-03] MEDS ORDERED: HYDR50TA15 PO (13:53)
[2017-07-03] MEDS ORDERED: WARF5TAB71 PO (13:53)
[2017-07-03] MEDS ORDERED: HYDRX10T PO (13:53)
[2017-07-03] MEDS ORDERED: TRAZ100T2 PO (13:53)
[2017-07-03] MEDS ORDERED: BACL10TA PO (13:53)
== END 2017-05-02 00:32 | disposition home or self-care (01) ==
LOC: ER 22:23
DX: S53.401A Unspecified sprain of right elbow, initial encounter (principal); S83.91XA Sprain of unspecified site of right knee, initial encounter; M10.9 Gout, unspecified; N18.6 End stage renal disease; K21.9 Gastro-esophageal reflux disease without esophagitis; I50.9 Heart failure, unspecified; I13.2 Hypertensive heart and chronic kidney disease with heart failure and with stage 5 chronic kidney disease, or end stage renal disease; I25.10 Atherosclerotic heart disease of native coronary artery without angina pectoris; F03.90 Unspecified dementia, unspecified severity, without behavioral disturbance, psychotic disturbance, mood disturbance, and anxiety; I25.2 Old myocardial infarction; Z86.73 Personal history of transient ischemic attack (TIA), and cerebral infarction without residual deficits; Z90.49 Acquired absence of other specified parts of digestive tract; Z88.0 Allergy status to penicillin; Z79.82 Long term (current) use of aspirin; Z79.01 Long term (current) use of anticoagulants; W19.XXXA Unspecified fall, initial encounter; Y93.89 Activity, other specified; Y92.481 Parking lot as the place of occurrence of the external cause; Y99.8 Other external cause status
CPT/HCPCS: 73080; 73562

== ENCOUNTER 2017-05-05 07:19 | Inpatient (IN) | payer MEDICARE, MEDICAID ==
[~2017-05-05] VITALS: Ht 170.2 cm; Wt 93.9 kg
[2017-05-05] MEDS ORDERED: SODIUM CHLORIDE 0.9% 1,000 ML IV ONE (07:40)
[2017-05-05] MEDS ORDERED: MORPHINE SULF INJ 2 MG/ML SYRINGE 1ML IV PRN (07:45)
[2017-05-05] MEDS ORDERED: NITROGLYCERIN 0.4 MG SL TAB SL PRN ×2 (08:00→11:45)
[2017-05-05 08:41] LABS: Basophils # (auto) 0.1 uL; Basophils % (auto) 0.8 % (0.0-2.0); Eosinophils # (auto) 0.3 uL; Hemoglobin 7.9 g/dL (13.5-17.5); Mean Corpuscular Hemoglobin 27.8 pg (28.0-32.0); Monocytes # (auto) 0.4 uL; Red Blood Cells 2.85 10^6/uL (4.5-5.90)
[2017-05-05 08:43] LABS: Hematocrit 25.6 % (41.0-53.0); Lymphocytes # (auto) 1.4 uL; Lymphocytes % (auto) 17.9 % (10.0-50.0); Mean Corpuscular Hgb Conc. 31.1 g/dL (32.0-36.0); Mean Corpuscular Volume 89.6 fL (80.0-100.0); Monocytes % (auto) 4.7 % (0.0-12.0); Neutrophils # (auto) 5.7 uL; Neutrophils % (auto) 72.6 % (37.0-80.0); Nucleated Red Blood Cells % 0.1 %; Platelet Count (auto) 309 10^3/uL (140-450); Red Cell Distribution Width 19.6 % (11.8-14.3); White Blood Cell 7.8 10^3/uL (4.4-10.8)
[2017-05-05 08:57] LABS: INR 2.81 (0.9-1.15); Partial Thromboplastin Time 50.6 sec (22.64-33.71); Prothrombin Time 30.9 sec (9.37-12.3)
[2017-05-05 09:12] LABS: Alanine Aminotransferase 13 U/L (16-61); Albumin 2.1 g/dL (3.4-5.0); Alkaline Phosphatase 90 U/L (45-117); Anion Gap 14 (5-15); Aspartate Aminotransferase 11 U/L (15-37); Bilirubin, Total 0.3 mg/dL (0.2-1.0); Blood Urea Nitrogen 49 mg/dL (7-18); Calcium 7.8 mg/dL (8.5-10.1); Carbon Dioxide 22 mmol/L (21-32); Chloride 100 mmol/L (98-107); GFR African American 7 mL/min; GFR Non-African American 6 mL/min; Glucose 84 mg/dL (74-106); Magnesium 2.3 mg/dL (1.6-2.6); Potassium 4.4 mmol/L (3.5-5.1); Sodium 136 mmol/L (136-145); Total Protein 8.9 g/dL (6.4-8.2)
[2017-05-05] MEDS ORDERED: NITROGLYCERIN 0.4 MG SL TAB SL ONE (10:00)
[2017-05-05] MEDS ORDERED: LORazepam 0.5 MG TAB PO PRN (11:45)
[2017-05-05] MEDS ORDERED: LACTULOSE 20Gm/30ML SOLN PO PRN (11:45)
[2017-05-05] MEDS ORDERED: OSELTAMIVIR 75 MG CAP PO ONE (11:45)
[2017-05-05] MEDS ORDERED: ACETAMINOPHEN 500 MG TAB PO PRN (11:45)
[2017-05-05] MEDS ORDERED: HYDROmorphone HCL 2 MG/ML VL IV PRN (11:45)
[2017-05-05] MEDS ORDERED: ALBUTEROL SULF 2.5 MG/0.5ML(0.5%) NEB SOLN NEB PRN (11:45)
[2017-05-05] MEDS ORDERED: OSELTAMIVIR 30 MG CAP PO ONE (12:15)
[2017-05-05] MEDS: ALBUTEROL SULF 2.5 MG/0.5ML(0.5%) NEB SOLN NEB SCH ×2 (12:30→18:57)
[2017-05-05] MEDS: IPRATROPIUM BROM 0.5 MG/2.5ML INH SOL NEB SCH ×2 (12:30→18:57)
[2017-05-05] MEDS: AZITHROMYCIN 500MG/ 250ML 250 ML IV SCH (12:32)
[2017-05-05] MEDS: HYDROcodone-ACET 5/325MG TAB PO PRN ×2 (12:33→23:48)
[2017-05-05] MEDS: PROMETHAZINE HCL 25 MG/ML 1ML IV PRN ×2 (12:44→23:49)
[2017-05-05 13:00] VITALS: BP 110/60
[2017-05-05] MEDS: PHENYTOIN SODIUM 100 MG CAP PO SCH ×2 (14:00→23:29)
[2017-05-05 15:52] VITALS: BP 110/60
[2017-05-05] MEDS: SODIUM CHLOR 0.9% PF (SALINE LOCK) 10ML VIAL IV SCH ×2 (16:02→22:00)
[2017-05-05] MEDS ORDERED: methylPREDNISolone SOD SUCC 40 MG/ML VL IV ONE (17:00)
[2017-05-05] MEDS ORDERED: WARFARIN SODIUM 1 MG TAB PO ONE (17:00)
[2017-05-05 17:03] VITALS: BP 145/104
[2017-05-05] MEDS ORDERED: OSELTAMIVIR 30 MG CAP PO PRN (22:00)
[2017-05-05] MEDS: hydrALAZINE HCL 25 MG TAB PO SCH (23:28)
[2017-05-05] MEDS: methylPREDNISolone SOD SUCC 40 MG/ML VL IV SCH (23:28)
[2017-05-05] MEDS: ATORVASTATIN 20 MG TAB PO SCH (23:29)
[2017-05-05] MEDS: METOPROLOL TARTRATE 25 MG TAB PO SCH (23:30)
[2017-05-05] MEDS: TEMAZEPAM 15 MG CAP PO PRN (23:47)
[2017-05-06] MEDS: ALBUTEROL SULF 2.5 MG/0.5ML(0.5%) NEB SOLN NEB SCH ×4 (00:51→19:16)
[2017-05-06] MEDS: IPRATROPIUM BROM 0.5 MG/2.5ML INH SOL NEB SCH ×4 (00:51→19:16)
[2017-05-06] MEDS: SODIUM CHLOR 0.9% PF (SALINE LOCK) 10ML VIAL IV SCH ×3 (06:00→21:49)
[2017-05-06 06:36] LABS: Basophils # (auto) 0 uL; Basophils % (auto) 0.3 % (0.0-2.0); Eosinophils # (auto) 0 uL; Eosinophils % (auto) 0.3 % (0.0-7.0); Lymphocytes # (auto) 0.5 uL; Monocytes # (auto) 0.1 uL; Neutrophils # (auto) 3.3 uL; Neutrophils % (auto) 83.6 % (37.0-80.0); Red Blood Cells 2.62 10^6/uL (4.5-5.90)
[2017-05-06 06:39] LABS: Hematocrit 23.3 % (41.0-53.0); Hemoglobin 7.4 g/dL (13.5-17.5); Lymphocytes % (auto) 13.9 % (10.0-50.0); Mean Corpuscular Hemoglobin 28.1 pg (28.0-32.0); Mean Corpuscular Hgb Conc. 31.6 g/dL (32.0-36.0); Mean Corpuscular Volume 88.8 fL (80.0-100.0); Monocytes % (auto) 1.9 % (0.0-12.0); Nucleated Red Blood Cells % 0.1 %; Platelet Count (auto) 307 10^3/uL (140-450); White Blood Cell 3.9 10^3/uL (4.4-10.8)
[2017-05-06 06:49] LABS: INR 3.16 (0.9-1.15); Prothrombin Time 34.9 sec (9.37-12.3)
[2017-05-06] MEDS: PHENYTOIN SODIUM 100 MG CAP PO SCH ×4 (06:59→22:41)
[2017-05-06 07:09] LABS: Albumin 1.9 g/dL (3.4-5.0); BUN/Creatinine Ratio 6.3; Bilirubin, Total 0.2 mg/dL (0.2-1.0); Potassium 5.4 mmol/L (3.5-5.1); Total Protein 8.4 g/dL (6.4-8.2)
[2017-05-06 08:30] VITALS: BP 93/53
[2017-05-06] MEDS: NIFEdipine 10 MG CAP PO SCH (10:00)
[2017-05-06] MEDS: NITROGLYCERIN 0.2MG/HR TOPICAL PATCH TD SCH (10:00)
[2017-05-06] MEDS: methylPREDNISolone SOD SUCC 40 MG/ML VL IV SCH ×3 (11:04→22:41)
[2017-05-06] MEDS: ASPirin 81 mg TAB PO SCH (11:05)
[2017-05-06] MEDS: AZITHROMYCIN 500MG/ 250ML 250 ML IV SCH (11:05)
[2017-05-06] MEDS: METOPROLOL TARTRATE 25 MG TAB PO SCH ×3 (11:06→22:42)
[2017-05-06] MEDS: hydrALAZINE HCL 25 MG TAB PO SCH ×2 (11:06→21:48)
[2017-05-06] MEDS: CLOPIDOGREL BISULFATE 75 MG TAB PO SCH (11:07)
[2017-05-06] MEDS: PANTOPRAZOLE 40 MG TAB PO SCH (11:07)
[2017-05-06 13:00] VITALS: BP 86/40
[2017-05-06 14:22] VITALS: BP 118/83
[2017-05-06 16:53] VITALS: BP 85/45
[2017-05-06] MEDS ORDERED: COLCHICINE 0.6 MG TAB PO ONE (19:00)
[2017-05-06] MEDS: TEMAZEPAM 15 MG CAP PO PRN (21:05)
[2017-05-06] MEDS: ATORVASTATIN 20 MG TAB PO SCH ×2 (21:49→22:41)
[2017-05-06] MEDS: HYDROcodone-ACET 5/325MG TAB PO PRN (22:43)
[2017-05-06 22:44] VITALS: BP 99/50
[2017-05-07] MEDS: ALBUTEROL SULF 2.5 MG/0.5ML(0.5%) NEB SOLN NEB SCH ×3 (00:32→11:48)
[2017-05-07] MEDS: IPRATROPIUM BROM 0.5 MG/2.5ML INH SOL NEB SCH ×3 (00:32→11:47)
[2017-05-07 05:23] VITALS: BP 105/43
[2017-05-07] MEDS: SODIUM CHLOR 0.9% PF (SALINE LOCK) 10ML VIAL IV SCH ×2 (06:00→14:00)
[2017-05-07] MEDS: PHENYTOIN SODIUM 100 MG CAP PO SCH ×2 (06:37→14:00)
[2017-05-07] MEDS: HYDROcodone-ACET 5/325MG TAB PO PRN (07:02)
[2017-05-07] MEDS: PROMETHAZINE HCL 25 MG/ML 1ML IV PRN (07:31)
[2017-05-07 08:00] VITALS: BP 95/57
[2017-05-07] MEDS ORDERED: SODIUM CHL 0.9% 1000 ML BAG XX ONE ×2 (08:00)
[2017-05-07] MEDS ORDERED: EPOETIN ALFA 10,000 UNIT/1 ML VIAL IV ONE ×2 (08:00)
[2017-05-07 08:15] VITALS: BP 95/57
[2017-05-07 09:15] LABS: Basophils # (auto) 0 uL; Eosinophils # (auto) 0 uL; Eosinophils % (auto) 0.7 % (0.0-7.0); Hemoglobin 7.2 g/dL (13.5-17.5); Lymphocytes # (auto) 1.1 uL; Monocytes # (auto) 0.2 uL; Neutrophils # (auto) 4.7 uL; Platelet Count (auto) 296 10^3/uL (140-450); White Blood Cell 6.1 10^3/uL (4.4-10.8)
[2017-05-07 09:17] LABS: Basophils % (auto) 0.2 % (0.0-2.0); Hematocrit 22.8 % (41.0-53.0); Lymphocytes % (auto) 18.1 % (10.0-50.0); Mean Corpuscular Hemoglobin 28.1 pg (28.0-32.0); Mean Corpuscular Hgb Conc. 31.7 g/dL (32.0-36.0); Mean Corpuscular Volume 88.8 fL (80.0-100.0); Monocytes % (auto) 3.7 % (0.0-12.0); Neutrophils % (auto) 77.3 % (37.0-80.0); Nucleated Red Blood Cells % 0.1 %; Red Blood Cells 2.57 10^6/uL (4.5-5.90)
[2017-05-07 09:22] LABS: Red Cell Distribution Width 20.1 % (11.8-14.3)
[2017-05-07 09:26] LABS: INR 2.24 (0.9-1.15); Partial Thromboplastin Time 58.5 sec (22.64-33.71); Prothrombin Time 24.6 sec (9.37-12.3)
[2017-05-07 09:54] LABS: BUN/Creatinine Ratio 6.4; Calcium 7.7 mg/dL (8.5-10.1); Potassium 3.2 mmol/L (3.5-5.1)
[2017-05-07] MEDS: NIFEdipine 10 MG CAP PO SCH (10:00)
[2017-05-07] MEDS: NITROGLYCERIN 0.2MG/HR TOPICAL PATCH TD SCH (10:00)
[2017-05-07] MEDS: METOPROLOL TARTRATE 25 MG TAB PO SCH (10:00)
[2017-05-07] MEDS: hydrALAZINE HCL 25 MG TAB PO SCH (10:00)
[2017-05-07] MEDS: PANTOPRAZOLE 40 MG TAB PO SCH (10:00)
[2017-05-07] MEDS: CLOPIDOGREL BISULFATE 75 MG TAB PO SCH (11:44)
[2017-05-07] MEDS: AZITHROMYCIN 500MG/ 250ML 250 ML IV SCH (11:45)
[2017-05-07] MEDS: methylPREDNISolone SOD SUCC 40 MG/ML VL IV SCH (11:45)
[2017-05-07] MEDS: ASPirin 81 mg TAB PO SCH (11:46)
[2017-05-07 12:15] VITALS: BP 106/41
[2017-05-07] MEDS ORDERED: WARFARIN SODIUM 2.5 MG TAB PO ONE (17:00)
[2017-05-09] MEDS ORDERED: COLCHICINE 0.6 MG TAB PO SCH (12:00)
[2017-07-03] MEDS ORDERED: HYDRX10T PO (13:53)
[2017-07-03] MEDS ORDERED: TRAZ100T2 PO (13:53)
[2017-07-03] MEDS ORDERED: HYDR50TA15 PO (13:53)
[2017-07-03] MEDS ORDERED: WARF5TAB71 PO (13:53)
[2017-07-03] MEDS ORDERED: BACL10TA PO (13:53)
== END 2017-05-07 15:55 | disposition home or self-care (01) | DRG 291 ==
LOC: EDBD 07:19 → ALLERGY 07:19 → TELE 07:20 → TELE-WESTW 13:01
PROVIDERS: ADMIT Internal Medicine; ATTEND Family Medicine
PROC: 5A1D70Z Performance of Urinary Filtration, Intermittent, Less than 6 Hours Per Day (ICD-10-PCS; principal; 2017-05-07)
DX: I13.2 Hypertensive heart and chronic kidney disease with heart failure and with stage 5 chronic kidney disease, or end stage renal disease (principal); J18.9 Pneumonia, unspecified organism; E43 Unspecified severe protein-calorie malnutrition; E11.22 Type 2 diabetes mellitus with diabetic chronic kidney disease; N18.6 End stage renal disease; I50.33 Acute on chronic diastolic (congestive) heart failure; J44.0 Chronic obstructive pulmonary disease with (acute) lower respiratory infection; J44.1 Chronic obstructive pulmonary disease with (acute) exacerbation; M10.9 Gout, unspecified; I25.119 Atherosclerotic heart disease of native coronary artery with unspecified angina pectoris; E87.5 Hyperkalemia; D63.8 Anemia in other chronic diseases classified elsewhere; E66.01 Morbid (severe) obesity due to excess calories; E78.5 Hyperlipidemia, unspecified; F03.90 Unspecified dementia, unspecified severity, without behavioral disturbance, psychotic disturbance, mood disturbance, and anxiety; F29 Unspecified psychosis not due to a substance or known physiological condition; F41.9 Anxiety disorder, unspecified; G40.909 Epilepsy, unspecified, not intractable, without status epilepticus; G47.00 Insomnia, unspecified; M10.071 Idiopathic gout, right ankle and foot; K21.9 Gastro-esophageal reflux disease without esophagitis; F32.9 Major depressive disorder, single episode, unspecified; Z53.20 Procedure and treatment not carried out because of patient's decision for unspecified reasons; Z82.3 Family history of stroke; Z68.32 Body mass index [BMI] 32.0-32.9, adult; Z82.49 Family history of ischemic heart disease and other diseases of the circulatory system; I25.2 Old myocardial infarction; Z86.73 Personal history of transient ischemic attack (TIA), and cerebral infarction without residual deficits; Z91.15 Patient's noncompliance with renal dialysis; Z95.5 Presence of coronary angioplasty implant and graft; Z99.2 Dependence on renal dialysis; Z88.1 Allergy status to other antibiotic agents; Z88.0 Allergy status to penicillin; Z88.5 Allergy status to narcotic agent; Z79.82 Long term (current) use of aspirin; Z79.899 Other long term (current) drug therapy; Z90.49 Acquired absence of other specified parts of digestive tract; Z80.8 Family history of malignant neoplasm of other organs or systems; I25.10 Atherosclerotic heart disease of native coronary artery without angina pectoris
CPT/HCPCS: 36415; 71046; 73600; 80048; 80053; 80061; 82550; 83516; 83735; 84443; 84484; 84550; 85025; 85610; 85652; 85730; 86141; 86225; 86235; 86431; 87040; 87081; 87804; 90935; 93005; 93971; 94640; 94761; 96361; 96365; J0885

== ENCOUNTER 2017-06-20 08:26 | Inpatient (IN) | payer MEDICARE, MEDICAID ==
[~2017-06-20] VITALS: Ht 170.2 cm; Wt 86.0 kg
[2017-06-20 09:19] LABS: Basophils # (auto) 0.1 uL; Basophils % (auto) 0.9 % (0.0-2.0); Eosinophils # (auto) 0.4 uL; Eosinophils % (auto) 5.5 % (0.0-7.0); Hematocrit 23.9 % (41.0-53.0); Hemoglobin 7.6 g/dL (13.5-17.5); Lymphocytes # (auto) 1.4 uL; Lymphocytes % (auto) 20.2 % (10.0-50.0); Mean Corpuscular Hemoglobin 28.3 pg (28.0-32.0); Mean Corpuscular Volume 88.3 fL (80.0-100.0); Monocytes # (auto) 0.6 uL; Monocytes % (auto) 8.5 % (0.0-12.0); Neutrophils # (auto) 4.5 uL; Neutrophils % (auto) 64.9 % (37.0-80.0); Platelet Count (auto) 220 10^3/uL (140-450); Red Cell Distribution Width 18.5 % (11.8-14.3); White Blood Cell 6.9 10^3/uL (4.4-10.8)
[2017-06-20 09:55] LABS: Albumin 2.4 g/dL (3.4-5.0); Anion Gap 10 (5-15); Blood Urea Nitrogen 56 mg/dL (7-18); Calcium 8.5 mg/dL (8.5-10.1); Carbon Dioxide 22 mmol/L (21-32); Chloride 105 mmol/L (98-107); Glucose 88 mg/dL (74-106); Potassium 4.3 mmol/L (3.5-5.1); Sodium 137 mmol/L (136-145)
[2017-06-20 09:56] LABS: Alanine Aminotransferase 16 U/L (16-61); Aspartate Aminotransferase 13 U/L (15-37); BUN/Creatinine Ratio 7.4; GFR African American 9 mL/min; GFR Non-African American 8 mL/min
[2017-06-20 10:02] LABS: Alkaline Phosphatase 81 U/L (45-117); Bilirubin, Total 0.3 mg/dL (0.2-1.0); Total Protein 7.5 g/dL (6.4-8.2)
[2017-06-20] MEDS ORDERED: SODIUM CHLORIDE 0.9% 1,000 ML IV ONE (11:25)
[2017-06-20] MEDS ORDERED: MORPHINE SULFATE 4 MG/ML SYR/VIAL IV ONE (11:30)
[2017-06-20] MEDS ORDERED: ONDANSETRON HCL 4 MG/2 ML VIAL IV ONE ×2 (11:30→19:45)
[2017-06-20 12:33] LABS: INR 1.08 (0.9-1.15); Partial Thromboplastin Time 30.8 sec (22.64-33.71); Prothrombin Time 11.8 sec (9.37-12.3)
[2017-06-20 13:05] LABS: Urine Bacteria NONE SEEN /hpf (None Seen); Urine Blood Negative /uL (Negative); Urine Specific Gravity 1.006 (1.001-1.035); Urine WBC 1 /hpf (0 - 3)
[2017-06-20] MEDS ORDERED: ALBUTEROL SULF 2.5 MG/0.5ML(0.5%) NEB SOLN NEB PRN (14:15)
[2017-06-20] MEDS ORDERED: NITROGLYCERIN 0.4 MG SL TAB SL PRN (14:15)
[2017-06-20] MEDS ORDERED: LORazepam 2MG/ML-1ML VIAL IV PRN (14:15)
[2017-06-20] MEDS ORDERED: SODIUM CHLORIDE 0.9% 500 ML IV ONE (14:15)
[2017-06-20] MEDS ORDERED: DEXTROSE (50%) 50ML SYRG IV PRN (14:15)
[2017-06-20] MEDS ORDERED: VANCOMYCIN PER PHARMACY 0 MG IV SCH (14:15)
[2017-06-20] MEDS ORDERED: LACTULOSE 20Gm/30ML SOLN PO PRN (14:15)
[2017-06-20] MEDS: PHENYTOIN SODIUM 100 MG CAP PO SCH ×2 (14:43→21:26)
[2017-06-20 14:57] LABS: Alcohol, Urine < 3.0 mg/dL (0-5); Amphetamine Screen, Urine NEGATIVE (NEGATIVE); Barbiturate Scree,Urine NEGATIVE (NEGATIVE); Benzodiazephine Screen, Urine NEGATIVE (NEGATIVE); Cannabinoid Screen, Urine NEGATIVE (NEGATIVE); Cocaine Screen, Urine NEGATIVE (NEGATIVE); Opiate Scree,Urine NEGATIVE (NEGATIVE); Phencyclidine Screen, Urine NEGATIVE (NEGATIVE)
[2017-06-20] MEDS ORDERED: LEVOFLOXACIN 500MG 100 ML IV SCH (15:00)
[2017-06-20] MEDS ORDERED: VANCOMYCIN 1,500 MG in D5W 5% 250 ML IV ONE (15:30)
[2017-06-20] MEDS: ACCU-CHEK COMFORT CURVE STRIP VI SCH ×2 (17:00→21:26)
[2017-06-20] MEDS: InsuLIN REG 1unit/0.01ml Soln (100units/ml) SC SCH ×2 (17:00→21:26)
[2017-06-20] MEDS: IPRATROPIUM BROM 0.5 MG/2.5ML INH SOL NEB SCH (19:16)
[2017-06-20] MEDS: ALBUTEROL SULF 2.5 MG/0.5ML(0.5%) NEB SOLN NEB SCH (19:16)
[2017-06-20] MEDS: MORPHINE SULFATE 4 MG/ML SYR/VIAL IV PRN (19:54)
[2017-06-20] MEDS ORDERED: TUBERCULIN PPD 5 UNIT/0.1 ML ID ONE (21:15)
[2017-06-20] MEDS: ATORVASTATIN 20 MG TAB PO SCH (21:26)
[2017-06-20] MEDS ORDERED: HYDROcodone-ACET 5/325MG TAB PO ONE (21:45)
[2017-06-21] MEDS: ALBUTEROL SULF 2.5 MG/0.5ML(0.5%) NEB SOLN NEB SCH ×4 (00:10→18:00)
[2017-06-21] MEDS: IPRATROPIUM BROM 0.5 MG/2.5ML INH SOL NEB SCH ×4 (00:10→18:00)
[2017-06-21 02:05] VITALS: BP 83/56
[2017-06-21] MEDS: PHENYTOIN SODIUM 100 MG CAP PO SCH ×3 (06:28→22:30)
[2017-06-21] MEDS: ACCU-CHEK COMFORT CURVE STRIP VI SCH ×4 (06:30→22:30)
[2017-06-21] MEDS: InsuLIN REG 1unit/0.01ml Soln (100units/ml) SC SCH ×4 (06:30→22:00)
[2017-06-21 07:19] LABS: Eosinophils # (auto) 0.2 uL; Hemoglobin 8.1 g/dL (13.5-17.5); Lymphocytes # (auto) 1.2 uL; Monocytes # (auto) 0.5 uL; Neutrophils # (auto) 3.6 uL; Nucleated Red Blood Cells % 0.1 %
[2017-06-21 07:21] LABS: Basophils # (auto) 0 uL; Basophils % (auto) 0.8 % (0.0-2.0); Eosinophils % (auto) 3.5 % (0.0-7.0); Hematocrit 25.8 % (41.0-53.0); Lymphocytes % (auto) 22.6 % (10.0-50.0); Mean Corpuscular Hemoglobin 28.7 pg (28.0-32.0); Mean Corpuscular Hgb Conc. 31.4 g/dL (32.0-36.0); Mean Corpuscular Volume 91.4 fL (80.0-100.0); Monocytes % (auto) 8.5 % (0.0-12.0); Neutrophils % (auto) 64.6 % (37.0-80.0); Platelet Count (auto) 250 10^3/uL (140-450); Red Blood Cells 2.82 10^6/uL (4.5-5.90); Red Cell Distribution Width 18.5 % (11.8-14.3); White Blood Cell 5.5 10^3/uL (4.4-10.8)
[2017-06-21 07:31] LABS: INR 1.14 (0.9-1.15); Prothrombin Time 12.4 sec (9.37-12.3)
[2017-06-21 07:39] LABS: Albumin 2.1 g/dL (3.4-5.0); BUN/Creatinine Ratio 6.6; Bilirubin, Total 0.3 mg/dL (0.2-1.0); Calcium 8.6 mg/dL (8.5-10.1); Potassium 5.5 mmol/L (3.5-5.1); Total Protein 7.5 g/dL (6.4-8.2)
[2017-06-21] MEDS ORDERED: ASPirin 81 mg TAB PO SCH ×2 (10:00)
[2017-06-21] MEDS: PANTOPRAZOLE 40 MG TAB PO SCH (11:02)
[2017-06-21] MEDS: CLOPIDOGREL BISULFATE 75 MG TAB PO SCH (11:02)
[2017-06-21] MEDS ORDERED: MORPHINE SULFATE 4 MG/ML SYR/VIAL IV ONE (11:30)
[2017-06-21] MEDS: ALBUMIN 25% 100 ML IV SCH ×2 (12:24→14:55)
[2017-06-21 14:00] VITALS: BP 113/69
[2017-06-21] MEDS: MORPHINE SULFATE 4 MG/ML SYR/VIAL IV PRN ×3 (14:55→23:33)
[2017-06-21] MEDS ORDERED: LEVOFLOXACIN 750MG 150 ML IV ONE (15:30)
[2017-06-21] MEDS ORDERED: EPOETIN ALFA 10,000 UNIT/1 ML VIAL IV ONE (15:30)
[2017-06-21] MEDS ORDERED: SODIUM CHL 0.9% 1000 ML BAG XX ONE (15:30)
[2017-06-21] MEDS ORDERED: IOHEXOL 300 MG/ML 100ML BOTTLE IJ ONE (15:42)
[2017-06-21 17:00] VITALS: BP 117/64
[2017-06-21] MEDS ORDERED: WARFARIN SODIUM 5 MG TAB PO ONE (17:00)
[2017-06-21 22:00] VITALS: BP 113/69
[2017-06-21] MEDS ORDERED: VANCOMYCIN 1GM/250ML 250 ML IV ONE (22:00)
[2017-06-21] MEDS ORDERED: VANCOMYCIN 500 MG in D5W 5% 100 ML IV ONE (22:00)
[2017-06-21] MEDS: ATORVASTATIN 20 MG TAB PO SCH (22:29)
[2017-06-21] MEDS: ONDANSETRON HCL 4 MG/2 ML VIAL IV PRN (23:33)
[2017-06-22] MEDS: IPRATROPIUM BROM 0.5 MG/2.5ML INH SOL NEB SCH ×4 (00:51→18:00)
[2017-06-22] MEDS: ALBUTEROL SULF 2.5 MG/0.5ML(0.5%) NEB SOLN NEB SCH ×4 (00:51→18:00)
[2017-06-22] MEDS: ONDANSETRON HCL 4 MG/2 ML VIAL IV PRN ×3 (03:25→21:31)
[2017-06-22] MEDS: MORPHINE SULFATE 4 MG/ML SYR/VIAL IV PRN ×5 (03:25→21:25)
[2017-06-22 05:30] VITALS: BP 93/55
[2017-06-22 05:45] LABS: Eosinophils # (auto) 0.3 uL; Eosinophils % (auto) 6.4 % (0.0-7.0); Platelet Count (auto) 268 10^3/uL (140-450)
[2017-06-22 05:49] LABS: Basophils # (auto) 0 uL; Hematocrit 21.9 % (41.0-53.0); Hemoglobin 7.2 g/dL (13.5-17.5); Lymphocytes # (auto) 1.3 uL; Lymphocytes % (auto) 27.6 % (10.0-50.0); Mean Corpuscular Hemoglobin 29.2 pg (28.0-32.0); Mean Corpuscular Hgb Conc. 32.7 g/dL (32.0-36.0); Mean Corpuscular Volume 89.3 fL (80.0-100.0); Monocytes # (auto) 0.5 uL; Monocytes % (auto) 10.1 % (0.0-12.0); Neutrophils # (auto) 2.6 uL; Neutrophils % (auto) 54.9 % (37.0-80.0); Nucleated Red Blood Cells % 0.3 %; Red Blood Cells 2.45 10^6/uL (4.5-5.90); Red Cell Distribution Width 18.5 % (11.8-14.3); White Blood Cell 4.7 10^3/uL (4.4-10.8)
[2017-06-22] MEDS: PHENYTOIN SODIUM 100 MG CAP PO SCH ×3 (05:49→22:03)
[2017-06-22] MEDS: InsuLIN REG 1unit/0.01ml Soln (100units/ml) SC SCH ×4 (05:49→22:00)
[2017-06-22] MEDS: ACCU-CHEK COMFORT CURVE STRIP VI SCH ×4 (05:49→22:00)
[2017-06-22 05:57] LABS: INR 1.26 (0.9-1.15); Partial Thromboplastin Time 33.6 sec (22.64-33.71); Prothrombin Time 13.8 sec (9.37-12.3)
[2017-06-22 09:00] VITALS: BP 116/60
[2017-06-22] MEDS: PANTOPRAZOLE 40 MG TAB PO SCH (12:32)
[2017-06-22] MEDS: CLOPIDOGREL BISULFATE 75 MG TAB PO SCH (12:32)
[2017-06-22 13:00] VITALS: BP 108/64
[2017-06-22] MEDS: LEVOFLOXACIN 500MG 100 ML IV SCH (15:00)
[2017-06-22 17:00] VITALS: BP 115/65
[2017-06-22] MEDS ORDERED: WARFARIN SODIUM 5 MG TAB PO ONE (17:00)
[2017-06-22 21:31] VITALS: BP 102/47
[2017-06-22] MEDS: PRO-STAT 64 30ML PO SCH (22:00)
[2017-06-22] MEDS: ATORVASTATIN 20 MG TAB PO SCH (22:03)
[2017-06-23] VITALS (9 sets, daily range): BP systolic 84–153; BP diastolic 50–81
[2017-06-23] MEDS: MORPHINE SULFATE 4 MG/ML SYR/VIAL IV PRN ×2 (02:10→18:24)
[2017-06-23] MEDS: ONDANSETRON HCL 4 MG/2 ML VIAL IV PRN (02:13)
[2017-06-23] MEDS: PHENYTOIN SODIUM 100 MG CAP PO SCH ×3 (05:43→21:32)
[2017-06-23] MEDS: InsuLIN REG 1unit/0.01ml Soln (100units/ml) SC SCH ×4 (06:30→21:32)
[2017-06-23] MEDS: ACCU-CHEK COMFORT CURVE STRIP VI SCH ×4 (06:31→21:33)
[2017-06-23] MEDS: ALBUTEROL SULF 2.5 MG/0.5ML(0.5%) NEB SOLN NEB SCH ×4 (06:44→20:43)
[2017-06-23] MEDS: IPRATROPIUM BROM 0.5 MG/2.5ML INH SOL NEB SCH ×4 (06:44→20:43)
[2017-06-23] MEDS: PANTOPRAZOLE 40 MG TAB PO SCH (10:00)
[2017-06-23] MEDS: PRO-STAT 64 30ML PO SCH ×2 (10:00→21:32)
[2017-06-23] MEDS ORDERED: EPOETIN ALFA 10,000 UNIT/1 ML VIAL IV ONE (12:15)
[2017-06-23] MEDS ORDERED: SODIUM CHL 0.9% 1000 ML BAG XX ONE (12:15)
[2017-06-23] MEDS: CLOPIDOGREL BISULFATE 75 MG TAB PO SCH (14:35)
[2017-06-23 15:22] LABS: Basophils # (auto) 0.1 uL; Basophils % (auto) 1.3 % (0.0-2.0); Eosinophils # (auto) 0.1 uL; Eosinophils % (auto) 1.7 % (0.0-7.0); Hematocrit 31.6 % (41.0-53.0); Hemoglobin 10.3 g/dL (13.5-17.5); Lymphocytes % (auto) 18.3 % (10.0-50.0); Mean Corpuscular Hgb Conc. 32.6 g/dL (32.0-36.0); Mean Corpuscular Volume 88.9 fL (80.0-100.0); Monocytes # (auto) 0.5 uL; Monocytes % (auto) 9.3 % (0.0-12.0); Neutrophils % (auto) 69.4 % (37.0-80.0); Nucleated Red Blood Cells % 0.1 %; Platelet Count (auto) 323 10^3/uL (140-450); Red Blood Cells 3.56 10^6/uL (4.5-5.90); Red Cell Distribution Width 16.6 % (11.8-14.3); White Blood Cell 5.7 10^3/uL (4.4-10.8)
[2017-06-23 15:46] LABS: INR 2.5 (0.9-1.15); Prothrombin Time 27.5 sec (9.37-12.3)
[2017-06-23] MEDS: ATORVASTATIN 20 MG TAB PO SCH (21:32)
[2017-06-23] MEDS ORDERED: ALBUMIN 5% 250 ML IV ONE (22:15)
[2017-06-24] VITALS (7 sets, daily range): BP systolic 85–105; BP diastolic 53–64
[2017-06-24] MEDS: InsuLIN REG 1unit/0.01ml Soln (100units/ml) SC SCH ×4 (06:19→22:00)
[2017-06-24] MEDS: PHENYTOIN SODIUM 100 MG CAP PO SCH ×3 (06:19→22:01)
[2017-06-24] MEDS: ACCU-CHEK COMFORT CURVE STRIP VI SCH ×4 (06:19→22:00)
[2017-06-24] MEDS: IPRATROPIUM BROM 0.5 MG/2.5ML INH SOL NEB SCH ×4 (06:50→18:00)
[2017-06-24] MEDS: ALBUTEROL SULF 2.5 MG/0.5ML(0.5%) NEB SOLN NEB SCH ×4 (06:50→18:00)
[2017-06-24] MEDS: CLOPIDOGREL BISULFATE 75 MG TAB PO SCH (09:24)
[2017-06-24] MEDS: ONDANSETRON HCL 4 MG/2 ML VIAL IV PRN ×4 (09:24→22:09)
[2017-06-24] MEDS: PRO-STAT 64 30ML PO SCH ×2 (09:24→22:00)
[2017-06-24] MEDS: PANTOPRAZOLE 40 MG TAB PO SCH (09:24)
[2017-06-24] MEDS: MORPHINE SULFATE 4 MG/ML SYR/VIAL IV PRN ×3 (09:25→20:26)
[2017-06-24 10:28] LABS: Basophils # (auto) 0.1 uL; Basophils % (auto) 0.8 % (0.0-2.0); Eosinophils # (auto) 0.3 uL; Eosinophils % (auto) 3.3 % (0.0-7.0); Hematocrit 28.5 % (41.0-53.0); Hemoglobin 9.2 g/dL (13.5-17.5); Lymphocytes # (auto) 1.2 uL; Lymphocytes % (auto) 14.4 % (10.0-50.0); Mean Corpuscular Hemoglobin 28.8 pg (28.0-32.0); Mean Corpuscular Hgb Conc. 32.1 g/dL (32.0-36.0); Mean Corpuscular Volume 89.7 fL (80.0-100.0); Monocytes # (auto) 0.6 uL; Monocytes % (auto) 7.8 % (0.0-12.0); Neutrophils % (auto) 73.7 % (37.0-80.0); Nucleated Red Blood Cells % 0.1 %; Platelet Count (auto) 322 10^3/uL (140-450); Red Blood Cells 3.18 10^6/uL (4.5-5.90); Red Cell Distribution Width 17.2 % (11.8-14.3); White Blood Cell 8.2 10^3/uL (4.4-10.8)
[2017-06-24 10:42] LABS: INR 2.77 (0.9-1.15); Partial Thromboplastin Time 41.8 sec (22.64-33.71); Prothrombin Time 30.5 sec (9.37-12.3)
[2017-06-24] MEDS: LEVOFLOXACIN 500MG 100 ML IV SCH (13:59)
[2017-06-24] MEDS ORDERED: WARFARIN SODIUM 2 MG TAB PO ONE (17:00)
[2017-06-24] MEDS: METHOCARBAMOL 500 MG TAB PO SCH ×2 (18:51→22:01)
[2017-06-24] MEDS: ATORVASTATIN 20 MG TAB PO SCH (22:00)
[2017-06-25] VITALS (7 sets, daily range): BP systolic 86–107; BP diastolic 52–69
[2017-06-25] MEDS: MORPHINE SULFATE 4 MG/ML SYR/VIAL IV PRN ×3 (00:26→20:39)
[2017-06-25] MEDS: ONDANSETRON HCL 4 MG/2 ML VIAL IV PRN ×2 (00:26→20:43)
[2017-06-25] MEDS: METHOCARBAMOL 500 MG TAB PO SCH ×4 (06:00→22:19)
[2017-06-25] MEDS: PHENYTOIN SODIUM 100 MG CAP PO SCH ×3 (06:32→22:20)
[2017-06-25] MEDS: ACCU-CHEK COMFORT CURVE STRIP VI SCH ×4 (06:32→22:00)
[2017-06-25] MEDS: InsuLIN REG 1unit/0.01ml Soln (100units/ml) SC SCH ×4 (06:32→22:00)
[2017-06-25] MEDS: IPRATROPIUM BROM 0.5 MG/2.5ML INH SOL NEB SCH ×3 (06:48→19:45)
[2017-06-25] MEDS: ALBUTEROL SULF 2.5 MG/0.5ML(0.5%) NEB SOLN NEB SCH ×3 (06:48→19:45)
[2017-06-25 07:15] LABS: INR 3.77 (0.9-1.15); Partial Thromboplastin Time 49.3 sec (22.64-33.71); Prothrombin Time 41.7 sec (9.37-12.3)
[2017-06-25 07:30] LABS: Basophils # (auto) 0.1 uL; Basophils % (auto) 0.5 % (0.0-2.0); Eosinophils # (auto) 0.4 uL; Eosinophils % (auto) 3.9 % (0.0-7.0); Hematocrit 29.5 % (41.0-53.0); Hemoglobin 9.5 g/dL (13.5-17.5); Lymphocytes # (auto) 1.7 uL; Lymphocytes % (auto) 17.9 % (10.0-50.0); Mean Corpuscular Hemoglobin 29.4 pg (28.0-32.0); Mean Corpuscular Hgb Conc. 32.2 g/dL (32.0-36.0); Mean Corpuscular Volume 91.2 fL (80.0-100.0); Monocytes # (auto) 0.8 uL; Monocytes % (auto) 8.1 % (0.0-12.0); Neutrophils # (auto) 6.5 uL; Neutrophils % (auto) 69.6 % (37.0-80.0); Nucleated Red Blood Cells % 0.1 %; Platelet Count (auto) 341 10^3/uL (140-450); Red Blood Cells 3.24 10^6/uL (4.5-5.90); White Blood Cell 9.4 10^3/uL (4.4-10.8)
[2017-06-25] MEDS ORDERED: POTASSIUM CHL 20 Meq TABLET PO ONE (09:30)
[2017-06-25] MEDS: CLOPIDOGREL BISULFATE 75 MG TAB PO SCH (10:32)
[2017-06-25] MEDS: PRO-STAT 64 30ML PO SCH ×2 (10:32→22:31)
[2017-06-25] MEDS: PANTOPRAZOLE 40 MG TAB PO SCH (10:33)
[2017-06-25] MEDS ORDERED: POTASSIUM CHLORIDE 40 MEQ, LIDOCAINE 1% (LOCAL ANESTH.) 4 ML in SODIUM CHL 0.9% 100 ML IV ONE (12:15)
[2017-06-25] MEDS ORDERED: LACTULOSE 20Gm/30ML SOLN PO ONE (15:15)
[2017-06-25] MEDS: ATORVASTATIN 20 MG TAB PO SCH (22:00)
[2017-06-26] VITALS (7 sets, daily range): BP systolic 88–110; BP diastolic 48–79
[2017-06-26] MEDS: ONDANSETRON HCL 4 MG/2 ML VIAL IV PRN ×4 (00:48→23:08)
[2017-06-26] MEDS: MORPHINE SULFATE 4 MG/ML SYR/VIAL IV PRN ×4 (00:48→23:08)
[2017-06-26] MEDS: ALBUTEROL SULF 2.5 MG/0.5ML(0.5%) NEB SOLN NEB SCH ×4 (01:32→19:00)
[2017-06-26] MEDS: IPRATROPIUM BROM 0.5 MG/2.5ML INH SOL NEB SCH ×4 (01:32→19:00)
[2017-06-26] MEDS: METHOCARBAMOL 500 MG TAB PO SCH ×4 (06:47→21:36)
[2017-06-26] MEDS: PHENYTOIN SODIUM 100 MG CAP PO SCH ×3 (06:47→21:34)
[2017-06-26] MEDS: InsuLIN REG 1unit/0.01ml Soln (100units/ml) SC SCH ×4 (06:51→21:41)
[2017-06-26] MEDS: ACCU-CHEK COMFORT CURVE STRIP VI SCH ×4 (06:51→21:41)
[2017-06-26 07:13] LABS: Basophils # (auto) 0.1 uL; Basophils % (auto) 1.2 % (0.0-2.0); Eosinophils # (auto) 0.3 uL; Eosinophils % (auto) 3.6 % (0.0-7.0); Hematocrit 28.6 % (41.0-53.0); Hemoglobin 9.3 g/dL (13.5-17.5); Lymphocytes # (auto) 1.3 uL; Lymphocytes % (auto) 14.6 % (10.0-50.0); Mean Corpuscular Hemoglobin 29.6 pg (28.0-32.0); Mean Corpuscular Hgb Conc. 32.6 g/dL (32.0-36.0); Mean Corpuscular Volume 90.6 fL (80.0-100.0); Monocytes # (auto) 0.6 uL; Monocytes % (auto) 6.9 % (0.0-12.0); Neutrophils # (auto) 6.5 uL; Neutrophils % (auto) 73.7 % (37.0-80.0); Platelet Count (auto) 336 10^3/uL (140-450); Red Blood Cells 3.15 10^6/uL (4.5-5.90); White Blood Cell 8.8 10^3/uL (4.4-10.8)
[2017-06-26 08:17] LABS: Partial Thromboplastin Time 59.5 sec (22.64-33.71); Prothrombin Time 50.1 sec (9.37-12.3)
[2017-06-26 08:22] LABS: INR 4.53 (0.9-1.15)
[2017-06-26] MEDS: PANTOPRAZOLE 40 MG TAB PO SCH (10:00)
[2017-06-26] MEDS: CLOPIDOGREL BISULFATE 75 MG TAB PO SCH (10:00)
[2017-06-26] MEDS: PRO-STAT 64 30ML PO SCH ×2 (10:00→21:41)
[2017-06-26] MEDS ORDERED: EPOETIN ALFA 3,000 UNIT/1 ML VIAL IV ONE (16:00)
[2017-06-26] MEDS ORDERED: EPOETIN ALFA 2,000 UNIT/1 ML VIAL IV ONE ×2 (16:15)
[2017-06-26] MEDS: ATORVASTATIN 20 MG TAB PO SCH (21:41)
[2017-06-27] MEDS: ALBUTEROL SULF 2.5 MG/0.5ML(0.5%) NEB SOLN NEB SCH ×2 (00:52→07:15)
[2017-06-27] MEDS: IPRATROPIUM BROM 0.5 MG/2.5ML INH SOL NEB SCH ×2 (00:52→07:15)
[2017-06-27] MEDS: ONDANSETRON HCL 4 MG/2 ML VIAL IV PRN ×2 (03:11→15:22)
[2017-06-27] MEDS: MORPHINE SULFATE 4 MG/ML SYR/VIAL IV PRN ×2 (03:11→15:12)
[2017-06-27 05:09] VITALS: BP 100/63
[2017-06-27 05:51] LABS: Basophils # (auto) 0.1 uL; Basophils % (auto) 0.6 % (0.0-2.0); Eosinophils # (auto) 0.2 uL; Eosinophils % (auto) 2.4 % (0.0-7.0); Hematocrit 32.4 % (41.0-53.0); Hemoglobin 10.4 g/dL (13.5-17.5); Lymphocytes # (auto) 1.4 uL; Lymphocytes % (auto) 15.9 % (10.0-50.0); Mean Corpuscular Hemoglobin 29.2 pg (28.0-32.0); Mean Corpuscular Hgb Conc. 32.1 g/dL (32.0-36.0); Monocytes # (auto) 0.7 uL; Monocytes % (auto) 8.6 % (0.0-12.0); Neutrophils # (auto) 6.2 uL; Neutrophils % (auto) 72.5 % (37.0-80.0); Nucleated Red Blood Cells % 0.1 %; Platelet Count (auto) 354 10^3/uL (140-450); Red Blood Cells 3.56 10^6/uL (4.5-5.90); Red Cell Distribution Width 17.5 % (11.8-14.3); White Blood Cell 8.6 10^3/uL (4.4-10.8)
[2017-06-27 06:20] LABS: Partial Thromboplastin Time 64.6 sec (22.64-33.71)
[2017-06-27 06:23] LABS: INR 4.96 (0.9-1.15)
[2017-06-27] MEDS: METHOCARBAMOL 500 MG TAB PO SCH ×2 (06:30→12:55)
[2017-06-27] MEDS: PHENYTOIN SODIUM 100 MG CAP PO SCH ×2 (06:30→14:48)
[2017-06-27] MEDS: InsuLIN REG 1unit/0.01ml Soln (100units/ml) SC SCH ×2 (06:36→11:30)
[2017-06-27] MEDS: ACCU-CHEK COMFORT CURVE STRIP VI SCH ×2 (06:36→11:30)
[2017-06-27 09:00] VITALS: BP 102/67
[2017-06-27] MEDS: CLOPIDOGREL BISULFATE 75 MG TAB PO SCH (09:04)
[2017-06-27] MEDS: PRO-STAT 64 30ML PO SCH (09:04)
[2017-06-27] MEDS: PANTOPRAZOLE 40 MG TAB PO SCH (09:04)
[2017-06-27 14:19] VITALS: BP 102/67
[2017-07-03] MEDS ORDERED: TRAZ100T2 PO (13:53)
[2017-07-03] MEDS ORDERED: HYDRX10T PO (13:53)
[2017-07-03] MEDS ORDERED: WARF5TAB71 PO (13:53)
[2017-07-03] MEDS ORDERED: BACL10TA PO (13:53)
[2017-07-03] MEDS ORDERED: HYDR50TA15 PO (13:53)
== END 2017-06-27 16:40 | DRG 551 ==
LOC: EDBD 08:26 → ER 08:28 → TELE 08:29 → TELE-WESTW 06-21 14:37
PROVIDERS: ADMIT Internal Medicine; ATTEND Internal Medicine
PROC: 5A1D70Z Performance of Urinary Filtration, Intermittent, Less than 6 Hours Per Day (ICD-10-PCS; principal; 2017-06-21)
PROC: 5A1D70Z Performance of Urinary Filtration, Intermittent, Less than 6 Hours Per Day (ICD-10-PCS; 2017-06-23)
PROC: 30233N1 Transfusion of Nonautologous Red Blood Cells into Peripheral Vein, Percutaneous Approach (ICD-10-PCS; 2017-06-23)
PROC: 5A1D70Z Performance of Urinary Filtration, Intermittent, Less than 6 Hours Per Day (ICD-10-PCS; 2017-06-26)
DX: M47.816 Spondylosis without myelopathy or radiculopathy, lumbar region (principal); N18.6 End stage renal disease; E43 Unspecified severe protein-calorie malnutrition; I13.2 Hypertensive heart and chronic kidney disease with heart failure and with stage 5 chronic kidney disease, or end stage renal disease; R78.81 Bacteremia; E11.22 Type 2 diabetes mellitus with diabetic chronic kidney disease; M51.36 Other intervertebral disc degeneration, lumbar region; M48.061 Spinal stenosis, lumbar region without neurogenic claudication; F31.9 Bipolar disorder, unspecified; E87.5 Hyperkalemia; E78.5 Hyperlipidemia, unspecified; E66.9 Obesity, unspecified; D63.1 Anemia in chronic kidney disease; F03.90 Unspecified dementia, unspecified severity, without behavioral disturbance, psychotic disturbance, mood disturbance, and anxiety; G40.909 Epilepsy, unspecified, not intractable, without status epilepticus; I25.10 Atherosclerotic heart disease of native coronary artery without angina pectoris; I50.9 Heart failure, unspecified; K21.9 Gastro-esophageal reflux disease without esophagitis; M10.9 Gout, unspecified; K44.9 Diaphragmatic hernia without obstruction or gangrene; M47.896 Other spondylosis, lumbar region; R91.1 Solitary pulmonary nodule; F41.9 Anxiety disorder, unspecified; M77.9 Enthesopathy, unspecified; Z79.01 Long term (current) use of anticoagulants; Z82.3 Family history of stroke; I25.2 Old myocardial infarction; Z82.49 Family history of ischemic heart disease and other diseases of the circulatory system; Z99.2 Dependence on renal dialysis; Z95.5 Presence of coronary angioplasty implant and graft; Z86.718 Personal history of other venous thrombosis and embolism; Z88.1 Allergy status to other antibiotic agents; Z88.0 Allergy status to penicillin; Z90.49 Acquired absence of other specified parts of digestive tract; Z68.29 Body mass index [BMI] 29.0-29.9, adult; Z86.73 Personal history of transient ischemic attack (TIA), and cerebral infarction without residual deficits
CPT/HCPCS: 36415; 51702; 70450; 71045; 71250; 72130; 72131; 78306; 80053; 80061; 80185; 80202; 80307; 81001; 82550; 82962; 83036; 83735; 83880; 84075; 84132; 84443; 84484; 85025; 85379; 85610; 85652; 85730; 86141; 86850; 86900; 86901; 86920; 87040; 87081; 87086; 90935; 93005; 93306; 93970; 94640; 94761; 96361; 96365; 96375; 97163; J0885; J1642; J1956; J2001; J2405; J7060; P9047; Q4081

== ENCOUNTER 2017-09-03 09:07 | Inpatient (IN) | payer MEDICARE, MEDICAID ==
[~2017-09-03] VITALS: Ht 175.3 cm; Wt 81.6 kg
[~2017-09-03 09:07] MED LIST changes: -ASPI81CH43 PO; +BACL10TA PO; -CLOP75TA28 PO; -ESOM40CA39; +HYDRX10T PO; -MET25T PO; -NIF10C PO; +TRAZ100T2 PO
[2017-09-03] MEDS ORDERED: SODIUM CHLORIDE 0.9% 1,000 ML IV ONE (10:00)
[2017-09-03 10:32] LABS: Basophils # (auto) 0.1 uL; Eosinophils # (auto) 0 uL; Hemoglobin 11.6 g/dL (13.5-17.5); Lymphocytes # (auto) 0.3 uL; Neutrophils % (auto) 88.7 % (37.0-80.0)
[2017-09-03 10:33] LABS: Basophils % (auto) 0.5 % (0.0-2.0); Hematocrit 37.4 % (41.0-53.0); Lymphocytes % (auto) 2.5 % (10.0-50.0); Mean Corpuscular Volume 90.5 fL (80.0-100.0); Monocytes % (auto) 8.3 % (0.0-12.0); Neutrophils # (auto) 11.1 uL; Platelet Count (auto) 124 10^3/uL (140-450); Red Blood Cells 4.13 10^6/uL (4.5-5.90); Red Cell Distribution Width 19.8 % (11.8-14.3); White Blood Cell 12.6 10^3/uL (4.4-10.8)
[2017-09-03 10:48] LABS: Albumin 1.8 g/dL (3.4-5.0); Anion Gap 18 (5-15); BUN/Creatinine Ratio 7.4; Blood Alcohol < 3.0 mg/dL (0-5); Blood Urea Nitrogen 63 mg/dL (7-18); Calcium 8.8 mg/dL (8.5-10.1); Carbon Dioxide 19 mmol/L (21-32); Chloride 104 mmol/L (98-107); GFR African American 8 mL/min; GFR Non-African American 7 mL/min; Glucose 100 mg/dL (74-106); Magnesium 2.3 mg/dL (1.6-2.6); Potassium 4.3 mmol/L (3.5-5.1); Sodium 141 mmol/L (136-145)
[2017-09-03 10:49] LABS: Lactic Acid w/Reflex 5.8 mmol/L (0.4-2.0)
[2017-09-03 11:06] LABS: Alanine Aminotransferase 10 U/L (16-61); Alkaline Phosphatase 120 U/L (45-117); Aspartate Aminotransferase 37 U/L (15-37); Bilirubin, Total 0.7 mg/dL (0.2-1.0); Total Protein 8.1 g/dL (6.4-8.2)
[2017-09-03] MEDS ORDERED: ENOXAPARIN SOD 80 MG/0.8ML SYRINGE SC ONE (11:30)
[2017-09-03] MEDS: PHENYLEPHRINE INJ 20 MG in D5W 5% 248 ML IV ONE ×2 (11:43→12:14)
[2017-09-03] MEDS ORDERED: VANCOMYCIN 1GM/250ML 250 ML IV ONE (11:45)
[2017-09-03] MEDS ORDERED: NITROGLYCERIN 0.4 MG SL TAB SL PRN (12:45)
[2017-09-03] MEDS ORDERED: MEROPENEM 500mg/10ml IVPUSH 10 ML IV ONE (12:45)
[2017-09-03] MEDS ORDERED: MORPHINE SULFATE 8mg/ml INJ SDV IV PRN (12:45)
[2017-09-03] MEDS ORDERED: VANCOMYCIN PER PHARMACY 0 MG IV SCH (12:45)
[2017-09-03] MEDS ORDERED: SODIUM CHLORIDE 0.9% 1,000 ML IV SCH (12:45)
[2017-09-03] MEDS ORDERED: MICAFUNGIN SODIUM 100 MG in SODIUM CHL 0.9% 100 ML IV ONE (12:45)
[2017-09-03 14:01] LABS: Urine Amorphous Crystal FEW /hpf (None Seen); Urine Bacteria NONE SEEN /hpf (None Seen); Urine Blood 2+ /uL (Negative); Urine Mucus FEW (None Seen); Urine Specific Gravity 1.017 (1.001-1.035); Urine WBC 152 /hpf (0 - 3); Urine WBC Clumps PRESENT /hpf (None Seen)
[2017-09-03] MEDS: SODIUM BICARBONATE 50ML VIAL 50 ML in SOD CHL 0.45% 1,000 ML IV SCH (14:34)
[2017-09-03] MEDS: PHENYLEPHRINE INJ 20 MG in D5W 5% 250 ML IV SCH (19:37)
[2017-09-03] MEDS ORDERED: ALBUMIN 5% 250 ML IV ONE (21:30)
[2017-09-03] MEDS: MEROPENEM 500mg/10ml IVPUSH 10 ML IV SCH (21:45)
[2017-09-03] MEDS ORDERED: NOREPINEPHRINE 8 MG/250ML KIT 250 ML IV SCH (22:15)
[2017-09-03] MEDS ORDERED: NOREPINEPHRINE 8 MG/250ML KIT 250 ML IV ONE (22:22)
[2017-09-04] MEDS ORDERED: LORazepam 2MG/ML-1ML VIAL IV ONE (01:00)
[2017-09-04] MEDS ORDERED: PHENYLEPHRINE HCL 10 MG/ML VL ONE (02:52)
[2017-09-04] MEDS: PHENYLEPHRINE INJ 20 MG in D5W 5% 250 ML IV SCH ×3 (03:08→20:15)
[2017-09-04] MEDS ORDERED: SODIUM BICARBONATE 8.4 % INJ 50ML VIAL IV ONE ×3 (03:15→22:45)
[2017-09-04] MEDS: SODIUM BICARBONATE 50ML VIAL 50 ML in SOD CHL 0.45% 1,000 ML IV SCH (03:23)
[2017-09-04 06:02] LABS: INR 1.75 (0.9-1.15); Partial Thromboplastin Time 44.9 sec (23.78-33.04); Prothrombin Time 18.1 sec (9.27-12.13)
[2017-09-04 06:20] LABS: Hematocrit 39.9 % (41.0-53.0)
[2017-09-04 06:23] LABS: Hemoglobin 11.6 g/dL (13.5-17.5); Mean Corpuscular Hemoglobin 28.2 pg (28.0-32.0); Mean Corpuscular Hgb Conc. 29.1 g/dL (32.0-36.0); Mean Corpuscular Volume 96.7 fL (80.0-100.0); Platelet Count (auto) 185 10^3/uL (140-450); Red Blood Cells 4.13 10^6/uL (4.5-5.90)
[2017-09-04] MEDS ORDERED: SODIUM BICARBONATE 8.4% INJ 50ML SYRINGE ONE (06:23)
[2017-09-04 06:25] LABS: Albumin 2.1 g/dL (3.4-5.0); Calcium 9.2 mg/dL (8.5-10.1); Potassium 4.8 mmol/L (3.5-5.1); Red Cell Distribution Width 20.6 % (11.8-14.3)
[2017-09-04 06:26] LABS: Band Neutrophils % (manual) 0; Basophils % (manual) 0 (0.0-2.0); Blast Cells 0; Eosinophils % (manual) 0 (0-7); Metamyelocytes % 0; Myelocytes % 0; Promyelocytes % 0; Reactive Lymphocytes 0
[2017-09-04 06:27] LABS: Bilirubin, Total 0.6 mg/dL (0.2-1.0); Total Protein 8.4 g/dL (6.4-8.2)
[2017-09-04 07:01] LABS: Lymphocytes % (manual) 17 (10.0-50.0); Monocytes % (manual) 9 (0-12)
[2017-09-04] MEDS ORDERED: SUCCINYLCHOLINE CHLORIDE 20 MG/ML 10ML VIAL IV ONE (07:30)
[2017-09-04] MEDS ORDERED: ETOMIDATE (2MG/ML) 20ML VIAL IV ONE (07:30)
[2017-09-04] MEDS ORDERED: MIDAZOLAM DRIP 50 mg/50mL 50 ML IV ONE (07:35)
[2017-09-04] MEDS ORDERED: MIDAZOLAM DRIP 50 mg/50mL 50 ML IV SCH (07:38)
[2017-09-04] MEDS ORDERED: VANCOMYCIN 1GM/250ML 250 ML IV ONE (09:00)
[2017-09-04] MEDS: MEROPENEM 500mg/10ml IVPUSH 10 ML IV SCH ×2 (09:04→21:18)
[2017-09-04] MEDS ORDERED: MICAFUNGIN SODIUM 100 MG in SODIUM CHL 0.9% 100 ML IV SCH (10:00)
[2017-09-04] MEDS ORDERED: PANTOPRAZOLE 40 MG/10 ML VIAL IV SCH (10:00)
[2017-09-04] MEDS ORDERED: SODIUM CHL 0.9% 1000 ML BAG XX ONE (10:30)
[2017-09-04 14:26] VITALS: BP 97/43
[2017-09-04] MEDS ORDERED: VASOPRESSIN 50 UNITS in D5W 5% 247.5 ML IV SCH (16:00)
[2017-09-04 16:04] VITALS: BP 108/44
[2017-09-04] MEDS ORDERED: ACETAMINOPHEN 650 mg PER 20 mL UD PO PRN (16:15)
[2017-09-04 18:14] VITALS: BP 112/44
[2017-09-04 19:57] VITALS: BP 111/42
[2017-09-04 22:16] VITALS: BP 100/63
[2017-09-04] MEDS ORDERED: EPINEPHrine HCL 250 ML IV ONE (22:43)
[2017-09-04] MEDS ORDERED: CALCIUM CHL 100MG/ML 500 MG in D5W 5% 100 ML IV ONE (22:45)
[2017-09-04 23:00] VITALS: BP 88/39
== END 2017-09-04 23:14 | disposition expired | DRG 871 ==
LOC: ER 09:07 → EDBD 09:07 → TELE 09:08
PROVIDERS: ADMIT Internal Medicine; ATTEND Internal Medicine
PROC: 02H633Z Insertion of Infusion Device into Right Atrium, Percutaneous Approach (ICD-10-PCS; 2017-09-03)
PROC: 0BH17EZ Insertion of Endotracheal Airway into Trachea, Via Natural or Artificial Opening (ICD-10-PCS; principal; 2017-09-04)
PROC: 5A1935Z Respiratory Ventilation, Less than 24 Consecutive Hours (ICD-10-PCS; 2017-09-04)
DX: A41.9 Sepsis, unspecified organism (principal); G93.41 Metabolic encephalopathy; E43 Unspecified severe protein-calorie malnutrition; I21.4 Non-ST elevation (NSTEMI) myocardial infarction; R65.21 Severe sepsis with septic shock; J96.00 Acute respiratory failure, unspecified whether with hypoxia or hypercapnia; K72.00 Acute and subacute hepatic failure without coma; N18.6 End stage renal disease; E87.2 Acidosis; I13.2 Hypertensive heart and chronic kidney disease with heart failure and with stage 5 chronic kidney disease, or end stage renal disease; N39.0 Urinary tract infection, site not specified; N17.9 Acute kidney failure, unspecified; E11.22 Type 2 diabetes mellitus with diabetic chronic kidney disease; E11.51 Type 2 diabetes mellitus with diabetic peripheral angiopathy without gangrene; F03.90 Unspecified dementia, unspecified severity, without behavioral disturbance, psychotic disturbance, mood disturbance, and anxiety; F20.9 Schizophrenia, unspecified; G40.909 Epilepsy, unspecified, not intractable, without status epilepticus; I25.10 Atherosclerotic heart disease of native coronary artery without angina pectoris; I48.91 Unspecified atrial fibrillation; I50.9 Heart failure, unspecified; I46.9 Cardiac arrest, cause unspecified; F32.9 Major depressive disorder, single episode, unspecified; F41.9 Anxiety disorder, unspecified; M10.9 Gout, unspecified; R16.1 Splenomegaly, not elsewhere classified; K21.9 Gastro-esophageal reflux disease without esophagitis; Z51.5 Encounter for palliative care; Z66 Do not resuscitate; Z82.3 Family history of stroke; Z82.49 Family history of ischemic heart disease and other diseases of the circulatory system; Z86.73 Personal history of transient ischemic attack (TIA), and cerebral infarction without residual deficits; Z90.49 Acquired absence of other specified parts of digestive tract; Z91.15 Patient's noncompliance with renal dialysis; Z99.2 Dependence on renal dialysis; Z88.1 Allergy status to other antibiotic agents; Z88.0 Allergy status to penicillin; Z79.899 Other long term (current) drug therapy; Z80.8 Family history of malignant neoplasm of other organs or systems; Z79.01 Long term (current) use of anticoagulants; Z68.26 Body mass index [BMI] 26.0-26.9, adult
CPT/HCPCS: 36415; 36556; 36600; 51702; 70450; 71045; 74176; 80053; 80185; 80202; 80320; 81001; 82270; 82805; 82962; 83605; 83735; 84484; 85007; 85025; 85027; 85610; 85730; 87040; 87070; 87086; 87088; 87186; 87205; 87493; 93005; 94002; 94640; 96365; 96372; 96375; 96379; 99291; C9113; J0171; J0330; J2248; J2250; J3490; J7060